=== PATIENT | female | born 1965 | race Caucasian/White ===

== ENCOUNTER → 2016-06-14 | Outpatient (CLI) | payer OTHER ==
[~2016-06-14] MED LIST: ACET500C OR; BACL10TA2 PO; CLARITAN D OR; CLARITIN D PO; FIORICET OR; FLECTOR PATCH; IBUP200C PO; LIDO2.5C17 EXT; MEDROXYPROGESTERONE PO; NEUR300C OR; RANI300T OR; SENO8.6T9 PO; SULI150T OR; TRAM50TA2 OR; VALI5TAB PO
--- NOTE | 2016-06-20 23:44 | ECWPNPC ---
PATIENT NAME: GAUTAM CHAVES : 1965 GENDER: FEMALE VISIT DATE: 06/14/2016 DISCHARGE DATE: 06/14/16 1152 VISIT LOCKED DATE TIME: PHYSICIAN: MAYCOL CHENG RESOURCE: MAYCOL CHENG REASON FOR APPOINTMENT 1. W/C NECK AND RIGHT SHOULDER HISTORY OF PRESENT ILLNESS HISTORY OF PRESENT ILLNESS: PAIN THE PATIENT DESCRIBES THE PAIN... 51 YEAR OLD FEMALE PATIENT WITH HISTORY OF CHRONIC NECK AND RIGHT SHOULDER PAIN. PATIENT DESCRIBES THE PAIN ACHING, BURNING, SHARP, STABBING, TENDER, SORE, AND HAVING IT ALL THE TIME WITH A PAIN SCORE OF 8/10. 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 PATIENT STATES THAT SHE WAS PICKING UP A 80 POUND BIN OF PASTA WHEN SHE INJURED HER NECK AND RIGHT SHOULDER. PATIENT STATES THAT HER PAIN LEVEL INCREASES WHEN SHE SITS FOR A LONG PERIOD OF TIME. PATIENT REPORTS THAT APPLYING VOLTAREN GEL DID NOT PROVIDER THE ADEQUATE PAIN RELIEF AND THAT SKELAXIN PATCHES PROVIDED TEMPORARY PAIN RELIEF. PATIENT REPORTS THAT TAKING GABAPENTIN, TRAMADOL, AND BACLOFEN MAKES THE PAIN MANAGEABLE. PATIENT INDICATES THAT SHE HAS HAD PHYSICAL THERAPY IN THE PAST AND THAT ONLY MADE THE PAIN WORST. A WARM COMPRESS DOES PROVIDE TEMPORARY RELIEF, WHILE A COLD COMPRESS DOES NOTHING FOR HER PAIN. PATIENT DENIES UNEXPLAINABLE WEIGHT LOSS, FEVER, CHILLS, NEW CHANGES ON HER URINARY OR BOWEL CONTROL. FALL RISK SCREENING: SCREENING :NO FALLS IN THE PAST YEAR CURRENT MEDICATIONS TAKING ACETAMINOPHEN 500 MG TABLET 1 TABLET NEEDED ORALLY EVERY 6 HRS TAKING CLARITIN-D 24 HOUR 10-240 MG/24HR TABLET EXTENDED RELEASE 24 HOUR 1 TABLET NEEDED ORALLY ONCE A DAY TAKING SENOKOT S 8.6-50 MG TABLET 1 TABLET IN THE EVENING NEEDED ORALLY ONCE A DAY TAKING BACLOFEN 10 MG TABLET 1 TABLET WITH FOOD OR MILK ORALLY THREE TIMES A DAY TAKING GABAPENTIN 100 MG CAPSULE 1 CAP ORALLY TID TAKING TRAMADOL HCL 50 MG TABLET 1 TABLET ORALLY EVERY 8-12 HRS PRN PAIN MDD=2 NOT-TAKING IBUPROFEN 200 MG TABLET 1 TABLET NEEDED ORALLY EVERY 6 HRS MEDICATION LIST REVIEWED AND RECONCILED WITH THE PATIENT PAST MEDICAL HISTORY NO MEDICAL HISTORY. ALLERGIES PENICILLIN (FOR ALLERGIES USE ONLY) SULFA (FOR ALLERGY USE ONLY) CYCLOBENZAPRINE HCL GABAPENTIN: SIDE EFFECTS SURGICAL HISTORY RIGHT SHOULDER SCOPE 2007 UTERINE ABLATION 2012 TONSILLECTOMY FAMILY HISTORY NO FAMILY HISTORY DOCUMENTED. SOCIAL HISTORY GENERAL: TOBACCO USE ARE YOU A:NONSMOKER LEARNING BARRIERS / SPECIAL NEEDS ORIENTED TO PLAN OF CARE: PATIENT, PAIN MANAGEMENT PATIENT, ORIENTED TO PLAN OF CARE: PATIENT, PAIN MANAGEMENT PATIENT. NEW PATIENT PAIN DIARY TODAY'S VISITNOTES FROM 0-10, WHAT LEVEL IS YOUR PAIN TODAY?0 PAIN CLINIC PFS, CLERGY, PUBLIC HEALTH REFERRALS PFS REFERRAL NEEDED?NO CLERGY REFERRAL NEEDED?NO PUBLIC HEALTH REFERRAL NEEDED?NO WAS THE PROVIDER NOTIFIED OF ANY PERTINENT INFO?NO PFS REFERRAL NEEDED?NO CLERGY REFERRAL NEEDED?NO PUBLIC HEALTH REFERRAL NEEDED?NO WAS THE PROVIDER NOTIFIED OF ANY PERTINENT INFO?NO HOSPITALIZATION/MAJOR DIAGNOSTIC PROCEDURE NO HOSPITALIZATION HISTORY. REVIEW OF SYSTEMS CONSTITUTIONAL: ANY CHANGE IN YOUR MEDICAL CONDITION? NO . CHILLS NO . FEVER NO . INFECTION: DO YOU HAVE NEW INFECTIONS? NO . DO YOU HAVE HISTORY OF MRSA? NO . MUSCULOSKELETAL: ANY NEW PATTERNS OF PAIN OR NUMBNESS? YES RADIATING DOWN TO ELBOW WHICH IS N EW . GASTROENTEROLOGY: ANY NEW CHANGE IN BOWEL CONTROL? NO . GENITOURINARY: ANY NEW CHANGE IN BLADDER CONTROL? NO . IS THERE A CHANCE YOU COULD BE ? NO . HEMATOLOGY/LYMPH: DO YOU TAKE ANY BLOOD THINNERS? (FOR EXAMPLE- COUMADIN, PLAVIX, AGGRENOX, PLATEL, PRADAXA, OR XARELTO) NO . WHEN WAS YOUR LAST DOSE? DATE: TIME: . NEUROLOGY: HAVE YOU FALLEN IN THE PAST 6 MONTHS? NO . ANY NEW EXTREMITY NUMBNESS OR WEAKNESS? NO . CARDIOLOGY: DO YOU HAVE A PACEMAKER OR DEFIBRILLATOR? NO . RESPIRATORY: HAVE YOU BEEN SICK IN THE PAST WEEK? NO . FEVER NO . FLU LIKE SYMPTOMS? NO . COUGH NO . INTEGUMENTARY: DO YOU HAVE ANY RASHES OR OPEN SORES? NO . ALLERGIC/IMMUNO: ARE YOU ALLERGIC TO SHELLFISH OR IV DYE? NO . ANY NEW ALLERGIES? NO . PSYCHIATRIC: DO YOU HAVE THOUGHTS OF HURTING YOURSELF OR SOMEONE ELSE? NO . ARE YOU ABUSED, NEGLECTED, OR IN AN UNSAFE ENVIRONMENT? NO . ENDOCRINOLOGY: ARE YOU DIABETIC? NO . OTHER: DO YOU NEED ANY PRESCRIPTIONS? YES TRAMDOL . IF YES, PLEASE LIST: ____ . ANY NEW PROBLEMS WITH YOUR MEDICATIONS? NO . WHEN DID YOU LAST EAT? ____ . WHEN DID YOU LAST DRINK? ____ . WHAT DID YOU LAST DRINK? ____ . NAME OF PERSON DRIVING YOU HOME? ____ . DO YOU HAVE ANY OTHER QUESTIONS OR CONCERNS NO . REVIEWED BY: PROVIDER: MAYCOL CHENG MD . VITAL SIGNS WT 190 LBS, HT 69 IN, BMI 28.06 INDEX, BP 127/65 MM HG, HR 74 /MIN, RR 16 /MIN, TEMP 96.0 F, OXYGEN SAT % 98, SAFE IN ENV? (Y/N) Y, NA INITIALS TL 1023, REVIEWED BY: KG. EXAMINATION : PATIENT IS ALERT O X 3 AND COOPERATIVE. PATIENT'S RIGHT SHOULDER WHILE AT REST IS HIGHER THAN THE LEFT SHOULDER. PATIENT CANNOT ABDUCT THE RIGHT ARM ONLY THE LEFT ARM. THERE IS TENDERNESS IN THE RIGHT CERVICAL PARASPINAL MUSCLE GROUP AND THE RIGHT SHOULDER AREA. THERE IS HYPERPATHIA IN THE RIGHT UPPER ARM AREA AND THE RIGHT SHOULDER AREA. ASSESSMENTS CERVICALGIA - M54.2 (PRIMARY) MYALGIA - M79.1 NEUROPATHY RIGHT UPPER EXTREMITY. TREATMENT OTHERS REFILL GABAPENTIN CAPSULE, 100 MG, 1 CAP, ORALLY, TID, 30 DAY(S), 90 CAPSULE, REFILLS 3 REFILL TRAMADOL HCL TABLET, 50 MG, 1 TABLET, ORALLY CODE D CHRONIC PAIN, EVERY 8-12 HRS PRN PAIN MDD=2, 90 DAYS, 180, REFILLS 0 REFILL BACLOFEN TABLET, 10 MG, 1 TABLET WITH FOOD OR MILK, ORALLY, THREE TIMES A DAY NEEDED FOR SPASMS AND PAIN MDD3, 30 DAYS, 90, REFILLS 3 NOTES: WE DISCUSSED SEVERAL ISSUES WITH MS. CHAVES PAIN MANAGEMENT CASE. PATIENT WILL REFILL A REFILL OF BACLOFEN, GABAPENTIN, AND TRAMADOL, THESE MEDICATIONS INCREASES THE PATIENT'S MOBILITY AND FUNCTIONALITY. PATIENT BROUGHT HER MEDICATION BOTTLES IN TODAY. I STRESSED THE IMPORTANCE OF COMING IN TO EVERY VISIT WITH THE PATIENT I DO NOT DO REFILLS OVER THE PHONE. DUE TO THE ATTIRE OF THE PATIENT DO I WILL NOT BE ABLE TO DO A TEMPERATURE TEST TODAY. INFORMED THE PATIENT ON THE NEXT VISIT TO WEAR SOMETHING THAT WOULD ALLOW US TO DO A TEMPERATURE TEST ON THE UPPER RIGHT ARM AND RIGHT SHOULDER AREA. I DISCUSSED WITH THE PATIENT THAT SHE IS A GOOD CANDIDATE FOR TPI AND A DCS, PATIENT STATES AT THIS TIME SHE WOULD LIKE TO PUT THOSE TYPE OF INTERVENTIONS ON HOLD. PATIENT TO FOLLOW UP WITH ME IN 2 MONTHS. , INSTRUCTIONS WERE GIVEN, QUESTIONS WERE ANSWERED, PATIENT REPORTS UNDERSTANDING AND AGREES WITH THE PLAN. I, ARLEEN OWUSU, DOCUMENTED THE ABOVE INFORMATION ACTING A SCRIBE FOR DR. CHENG. I HAVE REVIEWED THE ABOVE DOCUMENT, WRITTEN BY ARLEEN OWUSU SCRIBE AND I VERIFY THAT IT IS ACCURATE. PROCEDURES PN WORKMANS' COMP OPINION IN YOUR OPINION, WAS THE INCIDENT THAT THE PATIENT DESCRIBED THE COMPETENT MEDICAL CAUSE OF THIS INJURY/ILLNESS? YES ARE THE PATIENT'S COMPLAINTS CONSISTENT WITH HIS/HER HISTORY OF THE INJURY/ILLNESS? YES IS THE PATIENT'S HISTORY OF THE INJURY/ILLNESS CONSISTENT WITH YOUR OBJECTIVE FINDING? YES WHAT IS THE PERCENTAGE OF TEMPORARY IMPAIRMENT? TOTAL = 100% IS THE PATIENT WORKING? NO DOCTOR ON SITE: MAYCOL FRANCISCO MD PROCEDURE CODES FA211 ESTABILISHED PATIENT [facility] FACILITY CHARGE [id number] PATIENT REFUSED TO PARTICIPATE [id number] DOC MEDS VERIFIED W/PT OR RE FOLLOW UP 2 MONTHS ELECTRONICALLY SIGNED BY MAYCOL CHENG MD ON 06/20/2016 AT 09:35 PM EST DISCLAIMER : THIS IS A VISIT SUMMARY EXTRACTED FROM THE [employer] CHART. IT IS NOT A COPY OF THE [employer] PROGRESS NOTE. TESS
== END ==
LOC: M PAIN 10:40
PROVIDERS: ATTEND Anesthesiology
DX: Z09 Encounter for follow-up examination after completed treatment for conditions other than malignant neoplasm (principal); G89.29 Other chronic pain; M54.2 Cervicalgia; M79.1 Myalgia; Z88.0 Allergy status to penicillin; Z88.2 Allergy status to sulfonamides; Z88.8 Allergy status to other drugs, medicaments and biological substances; Z79.1 Long term (current) use of non-steroidal anti-inflammatories (NSAID); Z79.891 Long term (current) use of opiate analgesic; Z79.899 Other long term (current) drug therapy

== ENCOUNTER → 2016-08-17 | Outpatient (CLI) | payer OTHER ==
--- NOTE | 2016-08-20 23:55 | ECWPNPC ---
PATIENT NAME: GAUTAM CHAEVS : 1965 GENDER: FEMALE VISIT DATE: 08/17/2016 DISCHARGE DATE: 08/17/16 1450 VISIT LOCKED DATE TIME: PHYSICIAN: MAYCOL CHENG RESOURCE: MAYCOL CHENG REASON FOR APPOINTMENT 1. W/C RIGHT SHOULDER AND NECK PAIN HISTORY OF PRESENT ILLNESS HISTORY OF PRESENT ILLNESS: PAIN THE PATIENT DESCRIBES THE PAIN... 51 YEAR OLD FEMALE PATIENT WITH HISTORY OF CHRONIC RIGHT SHOULDER AND NECK PAIN. PATIENT DESCRIBES THE PAIN ACHING, BURNING, SHARP, TENDER, SORE, AND HAVING IT ALL THE TIME WITH A PAIN SCORE OF 8/10 AT TODAY'S VISIT. 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 MRS. CHAVES HAS HAD SURGERY SINCE THE INCIDENT AND HAS TRIED PHYSICAL THERAPY NUMEROUS TIMES BUT STATES THAT IT DOES NOT AID IN PAIN RELIEF. CURRENTLY THE PATIENT IS USING BACLOFEN, GABAPENTIN, AND TRAMADOL WHICH SHE STATES KEEPS HER FUNCTIONAL AND MOBILE. PATIENT STATES THAT SITTING INCREASES THE PAIN IN HER NECK AND RIGHT SHOULDER. WARM COMPRESSES AIDS IN PAIN RELIEF FOR A BRIEF PERIOD OF TIME AND COLD COMPRESSES DO NOT AID IN RELIEF. PATIENT DENIES UNEXPLAINABLE WEIGHT LOSS, FEVER, CHILLS, NEW CHANGES ON HER URINARY OR BOWEL CONTROL. FALL RISK SCREENING: SCREENING :NO FALLS IN THE PAST YEAR CURRENT MEDICATIONS TAKING GABAPENTIN 100 MG CAPSULE 1 CAP ORALLY TID TAKING TRAMADOL HCL 50 MG TABLET 1 TABLET ORALLY CODE D CHRONIC PAIN EVERY 8-12 HRS PRN PAIN MDD=2 TAKING ACETAMINOPHEN 500 MG TABLET 1 TABLET NEEDED ORALLY EVERY 6 HRS TAKING CLARITIN-D 24 HOUR 10-240 MG/24HR TABLET EXTENDED RELEASE 24 HOUR 1 TABLET NEEDED ORALLY ONCE A DAY TAKING SENOKOT S 8.6-50 MG TABLET 1 TABLET IN THE EVENING NEEDED ORALLY ONCE A DAY TAKING BACLOFEN 10 MG TABLET 1 TABLET WITH FOOD OR MILK ORALLY THREE TIMES A DAY NEEDED FOR SPASMS AND PAIN MDD3 NOT-TAKING IBUPROFEN 200 MG TABLET 1 TABLET NEEDED ORALLY EVERY 6 HRS MEDICATION LIST REVIEWED AND RECONCILED WITH THE PATIENT PAST MEDICAL HISTORY NO MEDICAL HISTORY. ALLERGIES PENICILLIN (FOR ALLERGIES USE ONLY) SULFA (FOR ALLERGY USE ONLY) CYCLOBENZAPRINE HCL GABAPENTIN: SIDE EFFECTS SURGICAL HISTORY RIGHT SHOULDER SCOPE 2007 UTERINE ABLATION 2012 TONSILLECTOMY FAMILY HISTORY NO FAMILY HISTORY DOCUMENTED. SOCIAL HISTORY GENERAL: TOBACCO USE ARE YOU A:NONSMOKER LEARNING BARRIERS / SPECIAL NEEDS ORIENTED TO PLAN OF CARE: PATIENT, PAIN MANAGEMENT PATIENT, ORIENTED TO PLAN OF CARE: PATIENT, PAIN MANAGEMENT PATIENT. NEW PATIENT PAIN DIARY TODAY'S VISITNOTES FROM 0-10, WHAT LEVEL IS YOUR PAIN TODAY?0 PAIN CLINIC PFS, CLERGY, PUBLIC HEALTH REFERRALS PFS REFERRAL NEEDED?NO CLERGY REFERRAL NEEDED?NO PUBLIC HEALTH REFERRAL NEEDED?NO WAS THE PROVIDER NOTIFIED OF ANY PERTINENT INFO?NO PFS REFERRAL NEEDED?NO CLERGY REFERRAL NEEDED?NO PUBLIC HEALTH REFERRAL NEEDED?NO WAS THE PROVIDER NOTIFIED OF ANY PERTINENT INFO?NO HOSPITALIZATION/MAJOR DIAGNOSTIC PROCEDURE NO HOSPITALIZATION HISTORY. REVIEW OF SYSTEMS CONSTITUTIONAL: ANY CHANGE IN YOUR MEDICAL CONDITION? NO . CHILLS NO . FEVER NO . INFECTION: DO YOU HAVE NEW INFECTIONS? NO . DO YOU HAVE HISTORY OF MRSA? NO . MUSCULOSKELETAL: ANY NEW PATTERNS OF PAIN OR NUMBNESS? NO . GASTROENTEROLOGY: ANY NEW CHANGE IN BOWEL CONTROL? NO . GENITOURINARY: ANY NEW CHANGE IN BLADDER CONTROL? NO . IS THERE A CHANCE YOU COULD BE ? NO . HEMATOLOGY/LYMPH: DO YOU TAKE ANY BLOOD THINNERS? (FOR EXAMPLE- COUMADIN, PLAVIX, AGGRENOX, PLATEL, PRADAXA, OR XARELTO) NO . WHEN WAS YOUR LAST DOSE? DATE: TIME: . NEUROLOGY: HAVE YOU FALLEN IN THE PAST 6 MONTHS? NO . ANY NEW EXTREMITY NUMBNESS OR WEAKNESS? NO . CARDIOLOGY: DO YOU HAVE A PACEMAKER OR DEFIBRILLATOR? NO . RESPIRATORY: HAVE YOU BEEN SICK IN THE PAST WEEK? NO . FEVER NO . FLU LIKE SYMPTOMS? NO . COUGH NO . INTEGUMENTARY: DO YOU HAVE ANY RASHES OR OPEN SORES? NO . ALLERGIC/IMMUNO: ARE YOU ALLERGIC TO SHELLFISH OR IV DYE? NO . ANY NEW ALLERGIES? NO . PSYCHIATRIC: DO YOU HAVE THOUGHTS OF HURTING YOURSELF OR SOMEONE ELSE? NO . ARE YOU ABUSED, NEGLECTED, OR IN AN UNSAFE ENVIRONMENT? NO . ENDOCRINOLOGY: ARE YOU DIABETIC? NO . OTHER: DO YOU NEED ANY PRESCRIPTIONS? NO . IF YES, PLEASE LIST: ____ . ANY NEW PROBLEMS WITH YOUR MEDICATIONS? NO . WHEN DID YOU LAST EAT? ____ . WHEN DID YOU LAST DRINK? ____ . WHAT DID YOU LAST DRINK? ____ . NAME OF PERSON DRIVING YOU HOME? ____ . DO YOU HAVE ANY OTHER QUESTIONS OR CONCERNS NO . REVIEWED BY: PROVIDER: MAYCOL CHENG MD . VITAL SIGNS WT 192.2 LBS, HT 69 IN, BMI 28.38 INDEX, BP 113/67 MM HG, HR 59 /MIN, RR 16 /MIN, TEMP 98.1 F, OXYGEN SAT % 98%, NA INITIALS SC 13:34, REVIEWED BY: CM. EXAMINATION : PATIENT IS ALERT O X 3 AND COOPERATIVE. DIFFICULTY REMOVING RIGHT ARM FROM LONG SLEEVED SHIRT. PATIENT'S RIGHT SHOULDER WHILE AT REST IS HIGHER THAN THE LEFT SHOULDER. PATIENT CANNOT ABDUCT THE RIGHT ARM ONLY THE LEFT ARM. RIGHT HAND TECHNOLOGY RISK INTERN AND ARM IS WEAKER THEN THE LEFT. THERE IS SEVERE TENDERNESS IN THE RIGHT SHOULDER AREA. ALLODYNIA DISTAL TO THE RIGHT ELBOW. PATIENT REQUESTED TO NOT BE TOUCHED AT THE BACK OF THE RIGHT SHOULDER AND ABOVE THE ELBOW DUE TO SEVERE PAIN. BANDS OF TISSUE, RESTRICTION OF MOVEMENT, AND PRESENCE OF TRIGGER POINTS IN THE RIGHT SHOULDER AND NECK AREA. ASSESSMENTS MYALGIA - M79.1 (PRIMARY) CERVICALGIA - M54.2 RIGHT UPPER EXTREMITY NEUROPATHY. TREATMENT MYALGIA NOTES: WE DISCUSSED SEVERAL ISSUES WITH MRS. CHAVES'S PAIN MANAGEMENT CASE. AT THIS TIME THE PATIENT WILL CONTINUE WITH THE SAME MEDICATION REGIME BEFORE. PATIENT IS USING GABAPENTIN FOR THE NEUROPATHIC PAIN, TRAMADOL FOR THE SOMATIC PAIN WELL TYLENOL, AND BACLOFEN FOR THE MUSCLE SPASMS IN THE NECK AND SHOULDER AREA. PATIENT WILL SLOWLY DECREASE THE USE OF BACLOFEN TO CLEAN HER SYSTEM AND TO SEE IF IT IS AIDING IN RELIEF AT THIS TIME. PATIENT WILL PERFORM A URINE TOXICOLOGY TEST TODAY WELL A TEMPERATURE TEST. I WILL ALSO GET THE REPORTS FROM THE RIGHT SHOULDER MRI TO BETTER ASSES THE PATIENT'S PAIN. WE DISCUSSED MOVING FORWARD WITH INJECTIONS BUT AT THIS TIME THE PATIENT WOULD NOT LIKE TO MOVE FORWARD WITH INTERVENTIONS. WE BRIEFLY DISCUSSED A DCS FOR THE PATIENT AND AT THIS TIME THE PATIENT DOES NOT WANT TO TRY THE NEUROSTIMULATOR. PATIENT WILL RETURN TO THE CLINIC IN 10 WEEKS TO DISCUSS MEDICATION MANAGEMENT AND POSSIBLE INTERVENTIONS. INSTRUCTIONS WERE GIVEN, QUESTIONS WERE ANSWERED, PATIENT REPORTS UNDERSTANDING AND AGREES WITH THE PLAN. I, VICTORIANO LUCAS, DOCUMENTED THE ABOVE INFORMATION ACTING A SCRIBE FOR DR. CHENG. I HAVE REVIEWED THE ABOVE DOCUMENT, WRITTEN BY VICTORIANO SOLORIO AND I VERIFY THAT IT IS ACCURATE. OTHERS REFILL GABAPENTIN CAPSULE, 100 MG, 1 CAP, ORALLY, TID, 30 DAY(S), 90 CAPSULE, REFILLS 3 REFILL TRAMADOL HCL TABLET, 50 MG, 1 TABLET, ORALLY CODE D CHRONIC PAIN, EVERY 8-12 HRS PRN PAIN MDD=2, 90 DAYS, 180, REFILLS 0 REFILL ACETAMINOPHEN TABLET, 500 MG, 1 TO 2 TABLET NEEDED, ORALLY, EVERY 6 HRS PRN FOR PAIN MDD6, 30 DAY(S), 100, REFILLS 3 REFILL BACLOFEN TABLET, 10 MG, 1 TABLET WITH FOOD OR MILK, ORALLY, THREE TIMES A DAY NEEDED FOR SPASMS AND PAIN MDD3, 30 DAYS, 70, REFILLS 3 PROCEDURES PN WORKMANS' COMP OPINION IN YOUR OPINION, WAS THE INCIDENT THAT THE PATIENT DESCRIBED THE COMPETENT MEDICAL CAUSE OF THIS INJURY/ILLNESS? YES ARE THE PATIENT'S COMPLAINTS CONSISTENT WITH HIS/HER HISTORY OF THE INJURY/ILLNESS? YES IS THE PATIENT'S HISTORY OF THE INJURY/ILLNESS CONSISTENT WITH YOUR OBJECTIVE FINDING? YES WHAT IS THE PERCENTAGE OF TEMPORARY IMPAIRMENT? TOTAL = 100% IS THE PATIENT WORKING? NO DOCTOR ON SITE: MAYCOL FRANCISCO MD PROCEDURE CODES FA211 ESTABILISHED PATIENT [facility] FACILITY CHARGE G8427 DOC MEDS VERIFIED W/PT OR RE G8730 PAIN ASSESS POS TOOL F/U PLAN DOC DISPOSITION & COMMUNICATION FOLLOW UP 10 WEEKS ELECTRONICALLY SIGNED BY MAYCOL CHENG MD ON 08/20/2016 AT 06:23 PM EDT DISCLAIMER : THIS IS A VISIT SUMMARY EXTRACTED FROM THE [employer] CHART. IT IS NOT A COPY OF THE [employer] PROGRESS NOTE. TESS
== END ==
LOC: M PAIN 13:40
PROVIDERS: ATTEND Anesthesiology
DX: Z09 Encounter for follow-up examination after completed treatment for conditions other than malignant neoplasm (principal); G89.29 Other chronic pain; M79.1 Myalgia; M54.2 Cervicalgia; Z88.0 Allergy status to penicillin; Z88.2 Allergy status to sulfonamides; Z88.8 Allergy status to other drugs, medicaments and biological substances; Z79.891 Long term (current) use of opiate analgesic; Z79.1 Long term (current) use of non-steroidal anti-inflammatories (NSAID); Z79.899 Other long term (current) drug therapy

== ENCOUNTER → 2016-10-26 | Outpatient (CLI) | payer OTHER ==
--- NOTE | 2016-11-07 01:34 | ECWPNPC ---
PATIENT NAME: GAUTAM CHAVES : 1965 GENDER: FEMALE VISIT DATE: 10/26/2016 DISCHARGE DATE: 10/26/16 1057 VISIT LOCKED DATE TIME: PHYSICIAN: MAYCOL CHENG RESOURCE: MAYCOL CHENG REASON FOR APPOINTMENT 1. W/C ARM/NECK PAIN HISTORY OF PRESENT ILLNESS HISTORY OF PRESENT ILLNESS: PAIN THE PATIENT DESCRIBES THE PAIN... 51 YEAR OLD FEMALE PATIENT WITH HISTORY OF CHRONIC RIGHT SHOULDER AND NECK PAIN. PATIENT DESCRIBES THE PAIN ACHING, BURNING, SHARP, TENDER, SORE, TINGLING, AND HAVING IT ALL THE TIME WITH A PAIN SCORE OF 8/10 ON TODAY'S VISIT. 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 MRS. CHAVES HAS HAD SURGERY SINCE THE INCIDENT AND HAS TRIED PHYSICAL THERAPY NUMEROUS TIMES BUT STATES THAT IT DOES NOT AID IN PAIN RELIEF. CURRENTLY THE PATIENT IS USING BACLOFEN WHICH HELPS SEVERE SPASTICITY DURING THE DAY TO ALLOW HER TO FUNCTION TO COMPLETE DAILY ACTIVITIES AND CHORES AND AT NIGHT TO HELP HER SLEEP, PATIENT REPORTS THAT GABAPENTIN IS HELPING WITH THE PAIN, BUT SHE CAN NOT TAKE MORE THAN 100 MG DUE TO MEMORY LOSS PROBLEMS. PATIENT REPORTS THAT WHEN SHE STOPPED/REDUCED BACLOFEN THE MUSCLE SPASTICITY WAS SO BAD SHE WAS NOT ABLE TO FUNCTION AT ALL. PATIENT REPORTS THAT SHE IS UNSURE HOW TRAMADOL IS HELPING WITH HER PAIN AT THIS TIME. PATIENT DENIES UNEXPLAINABLE WEIGHT LOSS, FEVER, CHILLS, NEW CHANGES ON HER URINARY OR BOWEL CONTROL. FALL RISK SCREENING: SCREENING :NO FALLS IN THE PAST YEAR CURRENT MEDICATIONS TAKING ACETAMINOPHEN 500 MG TABLET 1 TO 2 TABLET NEEDED ORALLY EVERY 6 HRS PRN FOR PAIN MDD6 TAKING CLARITIN-D 24 HOUR 10-240 MG/24HR TABLET EXTENDED RELEASE 24 HOUR 1 TABLET NEEDED ORALLY ONCE A DAY TAKING SENOKOT S 8.6-50 MG TABLET 1 TABLET IN THE EVENING NEEDED ORALLY ONCE A DAY TAKING TRAMADOL HCL 50 MG TABLET 1 TABLET ORALLY FOR PAIN EVERY 8-12 HRS PRN PAIN MDD=2 TAKING BACLOFEN 10 MG TABLET 1 TABLET WITH FOOD OR MILK ORALLY THREE TIMES A DAY NEEDED FOR SPASMS AND PAIN MDD3 TAKING GABAPENTIN 100 MG CAPSULE 1 CAP ORALLY TID NOT-TAKING IBUPROFEN 200 MG TABLET 1 TABLET NEEDED ORALLY EVERY 6 HRS MEDICATION LIST REVIEWED AND RECONCILED WITH THE PATIENT PAST MEDICAL HISTORY COMPLEX REGIONAL PAIN SYNDROME RIGHT ARM ESOPHAGEAL REFLUX DIAPHRAGMATIC HERNIA MYOFASCIAL PAIN SYNDROME ALLERGIES PENICILLIN (FOR ALLERGIES USE ONLY): UNKNOWN REACTION SULFA (FOR ALLERGY USE ONLY): UNKNOWN REACTION CYCLOBENZAPRINE HCL: ABDOMINAL PAIN: SIDE EFFECTS GABAPENTIN: HIGH DOSE CONFUSION/MEMORY LOSS: SIDE EFFECTS SURGICAL HISTORY RIGHT SHOULDER SCOPE 2007 UTERINE ABLATION 2012 TONSILLECTOMY FAMILY HISTORY NO FAMILY HISTORY DOCUMENTED. 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 NEW PATIENT PAIN DIARY TODAY'S VISITNOTES FROM 0-10, WHAT LEVEL IS YOUR PAIN TODAY?0 PAIN CLINIC PFS, CLERGY, PUBLIC HEALTH REFERRALS PFS REFERRAL NEEDED?NO CLERGY REFERRAL NEEDED?NO PUBLIC HEALTH REFERRAL NEEDED?NO WAS THE PROVIDER NOTIFIED OF ANY PERTINENT INFO?NO PFS REFERRAL NEEDED?NO CLERGY REFERRAL NEEDED?NO PUBLIC HEALTH REFERRAL NEEDED?NO WAS THE PROVIDER NOTIFIED OF ANY PERTINENT INFO?NO ADVANCE DIRECTIVES HEALTH CARE PROXY?NO WOULD YOU LIKE MORE INFORMATION?NO DO YOU HAVE A DNR?NO WOULD YOU LIKE MORE INFORMATION?NO LIVING WILL?NO WOULD YOU LIKE MORE INFORMATION?NO POWER OF GRADE SCHOOL TEACHER?NO WOULD YOU LIKE MORE INFORMATION?NO HOSPITALIZATION/MAJOR DIAGNOSTIC PROCEDURE TONSILLECTOMY REVIEW OF SYSTEMS CONSTITUTIONAL: ANY CHANGE IN YOUR MEDICAL CONDITION? NO . CHILLS NO . FEVER NO . INFECTION: DO YOU HAVE NEW INFECTIONS? NO . DO YOU HAVE HISTORY OF MRSA? NO . MUSCULOSKELETAL: ANY NEW PATTERNS OF PAIN OR NUMBNESS? NO . GASTROENTEROLOGY: ANY NEW CHANGE IN BOWEL CONTROL? NO . GENITOURINARY: ANY NEW CHANGE IN BLADDER CONTROL? NO . IS THERE A CHANCE YOU COULD BE ? NO . HEMATOLOGY/LYMPH: DO YOU TAKE ANY BLOOD THINNERS? (FOR EXAMPLE- COUMADIN, PLAVIX, AGGRENOX, PLATEL, PRADAXA, OR XARELTO) NO . WHEN WAS YOUR LAST DOSE? DATE: TIME: . NEUROLOGY: HAVE YOU FALLEN IN THE PAST 6 MONTHS? NO . ANY NEW EXTREMITY NUMBNESS OR WEAKNESS? NO . CARDIOLOGY: DO YOU HAVE A PACEMAKER OR DEFIBRILLATOR? NO . RESPIRATORY: HAVE YOU BEEN SICK IN THE PAST WEEK? NO . FEVER NO . FLU LIKE SYMPTOMS? NO . COUGH NO . INTEGUMENTARY: DO YOU HAVE ANY RASHES OR OPEN SORES? NO . ALLERGIC/IMMUNO: ARE YOU ALLERGIC TO SHELLFISH OR IV DYE? NO . ANY NEW ALLERGIES? NO . PSYCHIATRIC: DO YOU HAVE THOUGHTS OF HURTING YOURSELF OR SOMEONE ELSE? NO . ARE YOU ABUSED, NEGLECTED, OR IN AN UNSAFE ENVIRONMENT? NO . ENDOCRINOLOGY: ARE YOU DIABETIC? NO . OTHER: DO YOU NEED ANY PRESCRIPTIONS? NO . IF YES, PLEASE LIST: ____ . ANY NEW PROBLEMS WITH YOUR MEDICATIONS? NO . WHEN DID YOU LAST EAT? ____ . WHEN DID YOU LAST DRINK? ____ . WHAT DID YOU LAST DRINK? ____ . NAME OF PERSON DRIVING YOU HOME? ____ . DO YOU HAVE ANY OTHER QUESTIONS OR CONCERNS NO . REVIEWED BY: PROVIDER: MAYCOL CHENG MD . VITAL SIGNS WT 198.2 LBS, HT 69 IN, BMI 29.27 INDEX, BP 114/65 MM HG, HR 60 /MIN, RR 16 /MIN, TEMP 97.0 F, OXYGEN SAT % 99%, NA INITIALS TL 0925, REVIEWED BY: JAMES. EXAMINATION : PATIENT IS ALERT O X 3 AND COOPERATIVE. PATIENT HAS DIFFICULTIES REMOVING HER SHIRT FOR THE EXAMINATION. PATIENT'S RIGHT SHOULDER SITS AT A LOWER RESTING POSITION COMPARED TO THE LEFT SHOULDER. PATIENT IS ONLY ABLE TO ABDUCT HER RIGHT EXTREMITY TO 30 DEGREES, LEFT EXTREMITY ABDUCTS OKAY. THERE IS TENDERNESS IN THE RIGHT SHOULDER WITH HYPERPATHIA. THERE IS ALLODYNIA IN THE RIGHT UPPER ARM. RIGHT HAND NEWSPAPER VENDOR IS WEAKER COMPARED TO THE LEFT. RIGHT ARM IS WEAKER AT FLEXION AND EXTENSION COMPARED TO THE LEFT. ASSESSMENTS MYALGIA - M79.1 (PRIMARY) RIGHT UPPER EXTREMITY NEUROPATHY. TREATMENT MYALGIA NOTES: WE DISCUSSED SEVERAL ISSUES WITH MRS. CHAVES'S PAIN MANAGEMENT CASE. AT THIS TIME THE PATIENT WILL CONTINUE WITH THE SAME MEDICATION REGIME BEFORE. PATIENT IS USING GABAPENTIN FOR THE NEUROPATHIC PAIN AND BACLOFEN NEEDED FOR THE MUSCLE SPASMS IN THE NECK AND SHOULDER AREA. AT THIS TIME I WILL HAVE THE PATIENT REDUCE HER TRAMADOL INTAKE TO DETERMINE HOW THIS MEDICATION IS AIDING IN HER PAIN RELIEF. I DISCUSSED WITH THE PATIENT IS SHE COULD LOCATE A REPORT OF MRI OF THE RIGHT SHOULDER AND BRING THAT REPORT ON HER NEXT VISIT. I DISCUSSED INTERVENTIONAL INJECTION POSSIBILITIES THAT SHE IS A CANDIDATE FOR AND SPINAL COLUMN STIMULATOR WITH THE PATIENT AND AT THIS TIME THE PATIENT IS NOT INTERESTED. UTOX ORDERED ON 08/17/2016 SHOWS CONSISTENT RESULTS WITH WAS PRESCRIBED FOR THE PATIENT. PATIENT WILL FOLLOW UP WITH ME IN 2 MONTHS. INSTRUCTIONS WERE GIVEN, QUESTIONS WERE ANSWERED, PATIENT REPORTS UNDERSTANDING AND AGREES WITH THE PLAN. I, ARLEEN OWUSU, DOCUMENTED THE ABOVE INFORMATION ACTING A SCRIBE FOR DR. CHENG. I HAVE REVIEWED THE ABOVE DOCUMENT, WRITTEN BY ARLEEN OWUSU SCRIBE AND I VERIFY THAT IT IS ACCURATE. OTHERS REFILL BACLOFEN TABLET, 10 MG, 1 TABLET WITH FOOD OR MILK, ORALLY, THREE TIMES A DAY NEEDED FOR SPASMS AND PAIN MDD3, 30 DAYS, 60, REFILLS 3 REFILL GABAPENTIN CAPSULE, 100 MG, 1 CAP, ORALLY, TID, 30 DAY(S), 90 CAPSULE, REFILLS 3 PROCEDURES PN WORKMANS' COMP OPINION IN YOUR OPINION, WAS THE INCIDENT THAT THE PATIENT DESCRIBED THE COMPETENT MEDICAL CAUSE OF THIS INJURY/ILLNESS? YES ARE THE PATIENT'S COMPLAINTS CONSISTENT WITH HIS/HER HISTORY OF THE INJURY/ILLNESS? YES IS THE PATIENT'S HISTORY OF THE INJURY/ILLNESS CONSISTENT WITH YOUR OBJECTIVE FINDING? YES WHAT IS THE PERCENTAGE OF TEMPORARY IMPAIRMENT? TOTAL = 100% IS THE PATIENT WORKING? NO DOCTOR ON SITE: MAYCOL FRANCISCO MD PROCEDURE CODES FA211 ESTABILISHED PATIENT [facility] FACILITY CHARGE G8730 PAIN ASSESS POS TOOL F/U PLAN DOC G8427 DOC MEDS VERIFIED W/PT OR RE DISPOSITION & COMMUNICATION FOLLOW UP 2 MONTHS ELECTRONICALLY SIGNED BY MAYCOL CHENG MD ON 11/05/2016 AT 07:53 PM EDT DISCLAIMER : THIS IS A VISIT SUMMARY EXTRACTED FROM THE [employer] CHART. IT IS NOT A COPY OF THE [employer] PROGRESS NOTE. MTDD
== END ==
LOC: M PAIN 09:30
PROVIDERS: ATTEND Anesthesiology
DX: G89.29 Other chronic pain (principal); M79.1 Myalgia; M25.011 Hemarthrosis, right shoulder; M54.2 Cervicalgia; K21.9 Gastro-esophageal reflux disease without esophagitis; K44.9 Diaphragmatic hernia without obstruction or gangrene; Z88.0 Allergy status to penicillin; Z88.2 Allergy status to sulfonamides; Z88.8 Allergy status to other drugs, medicaments and biological substances; Z79.891 Long term (current) use of opiate analgesic; Z79.899 Other long term (current) drug therapy

== ENCOUNTER → 2017-01-11 | Outpatient (CLI) | payer OTHER ==
[~2017-01-11] MED LIST changes: -IBUP200C PO; +IBUP200C10 PO
--- NOTE | 2017-01-30 02:11 | ECWPNPC ---
PATIENT NAME: GAUTAM CHAVES : 1965 GENDER: FEMALE VISIT DATE: 01/11/2017 DISCHARGE DATE: 01/11/17 1251 VISIT LOCKED DATE TIME: PHYSICIAN: MAYCOL CHENG RESOURCE: MAYCOL CHENG REASON FOR APPOINTMENT 1. W/C RIGHT SHOULDER HISTORY OF PRESENT ILLNESS HISTORY OF PRESENT ILLNESS: PAIN THE PATIENT DESCRIBES THE PAIN... 51 YEAR OLD FEMALE PATIENT WITH HISTORY OF CHRONIC RIGHT SHOULDER AND NECK PAIN. PATIENT DESCRIBES THE PAIN ACHING, BURNING, SHARP, STABBING, TENDER, SORE, AND HAVING THE PAIN ALL THE TIME. PATIENT HAS A PAIN SCORE OF 8-9/10 AT TODAY'S VISIT. 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 MRS. CHAVES HAS HAD SURGERY SINCE THE INCIDENT AND HAS TRIED PHYSICAL THERAPY A NUMBER OF TIMES BUT STATES THAT IT DOES NOT AID IN PAIN RELIEF. CURRENTLY THE PATIENT IS USING BACLOFEN, AND GABAPENTIN WHICH SHE STATES KEEPS HER FUNCTIONAL AND MOBILE. PATIENT STATES THAT SITTING INCREASES THE PAIN IN HER NECK AND RIGHT SHOULDER. WARM COMPRESSES AIDS IN PAIN RELIEF FOR A BRIEF PERIOD OF TIME AND COLD COMPRESSES DO NOT AID IN RELIEF. PATIENT DENIES UNEXPLAINABLE WEIGHT LOSS, FEVER, CHILLS, NEW CHANGES ON HER URINARY OR BOWEL CONTROL. FALL RISK SCREENING: SCREENING :NO FALLS IN THE PAST YEAR CURRENT MEDICATIONS TAKING BACLOFEN 10 MG TABLET 1 TABLET WITH FOOD OR MILK ORALLY THREE TIMES A DAY NEEDED FOR SPASMS AND PAIN MDD3 TAKING GABAPENTIN 100 MG CAPSULE 1 CAP ORALLY TID TAKING ACETAMINOPHEN 500 MG TABLET 1 TO 2 TABLET NEEDED ORALLY EVERY 6 HRS PRN FOR PAIN MDD6 TAKING CLARITIN-D 24 HOUR 10-240 MG/24HR TABLET EXTENDED RELEASE 24 HOUR 1 TABLET NEEDED ORALLY ONCE A DAY TAKING SENOKOT S 8.6-50 MG TABLET 1 TABLET IN THE EVENING NEEDED ORALLY ONCE A DAY NOT-TAKING TRAMADOL HCL 50 MG TABLET 1 TABLET ORALLY FOR PAIN EVERY 8-12 HRS PRN PAIN MDD=2 NOT-TAKING IBUPROFEN 200 MG TABLET 1 TABLET NEEDED ORALLY EVERY 6 HRS MEDICATION LIST REVIEWED AND RECONCILED WITH THE PATIENT PAST MEDICAL HISTORY COMPLEX REGIONAL PAIN SYNDROME RIGHT ARM ESOPHAGEAL REFLUX DIAPHRAGMATIC HERNIA MYOFASCIAL PAIN SYNDROME ALLERGIES PENICILLIN (FOR ALLERGIES USE ONLY): UNKNOWN REACTION SULFA (FOR ALLERGY USE ONLY): UNKNOWN REACTION CYCLOBENZAPRINE HCL: ABDOMINAL PAIN: SIDE EFFECTS GABAPENTIN: HIGH DOSE CONFUSION/MEMORY LOSS: SIDE EFFECTS REVIEW OF SYSTEMS REVIEWED BY: PROVIDER: MAYCOL CHENG MD . CONSTITUTIONAL: ANY CHANGE IN YOUR MEDICAL CONDITION? YES . CHILLS NO . FEVER NO . INFECTION: DO YOU HAVE NEW INFECTIONS? NO . DO YOU HAVE HISTORY OF MRSA? NO . MUSCULOSKELETAL: ANY NEW PATTERNS OF PAIN OR NUMBNESS? YES, RIGHT NECK AND INTO SHOULDER AND DOWN ARM IS MUCH WORSE IN THE PAST WEEK . GASTROENTEROLOGY: ANY NEW CHANGE IN BOWEL CONTROL? NO . GENITOURINARY: ANY NEW CHANGE IN BLADDER CONTROL? NO . IS THERE A CHANCE YOU COULD BE ? NO . HEMATOLOGY/LYMPH: DO YOU TAKE ANY BLOOD THINNERS? (FOR EXAMPLE- COUMADIN, PLAVIX, AGGRENOX, PLATEL, PRADAXA, OR XARELTO) NO . WHEN WAS YOUR LAST DOSE? DATE: TIME: . NEUROLOGY: HAVE YOU FALLEN IN THE PAST 6 MONTHS? NO . ANY NEW EXTREMITY NUMBNESS OR WEAKNESS? NO . CARDIOLOGY: DO YOU HAVE A PACEMAKER OR DEFIBRILLATOR? NO . RESPIRATORY: HAVE YOU BEEN SICK IN THE PAST WEEK? NO . FEVER NO . FLU LIKE SYMPTOMS? NO . COUGH NO . INTEGUMENTARY: DO YOU HAVE ANY RASHES OR OPEN SORES? NO . ALLERGIC/IMMUNO: ARE YOU ALLERGIC TO SHELLFISH OR IV DYE? NO . ANY NEW ALLERGIES? NO . PSYCHIATRIC: DO YOU HAVE THOUGHTS OF HURTING YOURSELF OR SOMEONE ELSE? NO . ARE YOU ABUSED, NEGLECTED, OR IN AN UNSAFE ENVIRONMENT? NO . ENDOCRINOLOGY: ARE YOU DIABETIC? NO . OTHER: DO YOU NEED ANY PRESCRIPTIONS? NO . IF YES, PLEASE LIST: ____ . ANY NEW PROBLEMS WITH YOUR MEDICATIONS? NO . WHEN DID YOU LAST EAT? ____ . WHEN DID YOU LAST DRINK? ____ . WHAT DID YOU LAST DRINK? ____ . NAME OF PERSON DRIVING YOU HOME? ____ . DO YOU HAVE ANY OTHER QUESTIONS OR CONCERNS NO . VITAL SIGNS WT 191 LBS, HT 69 IN, BMI 28.20 INDEX, BP 107/65 MM HG, HR 55 /MIN, RR 16 /MIN, TEMP 97.2 F, OXYGEN SAT % 99%, NA INITIALS AW 1204. EXAMINATION : PATIENT IS ALERT O X 3 AND COOPERATIVE. THERE IS SEVERE TENDERNESS IN THE RIGHT SHOULDER AREA. THERE IS EXTREME SPASTICITY NEAR THE RIGHT SHOULDER AREA. URINE TOX DONE ON 08/17/2016 SHOWS CONSISTENT RESULTS WITH THE PATIENTS MEDICATION LIST. ASSESSMENTS MYALGIA - M79.1 (PRIMARY) CERVICALGIA - M54.2 TREATMENT MYALGIA CLINICAL NOTES: WE DISCUSSED SEVERAL ISSUES WITH MRS. CHAVES'S PAIN MANAGEMENT CASE. AT THIS TIME THE PATIENT WILL CONTINUE WITH THE SAME MEDICATION REGIME BEFORE. PATIENT IS USING GABAPENTIN FOR THE NEUROPATHIC PAIN, AND BACLOFEN FOR THE MUSCLE SPASMS IN THE NECK AND SHOULDER AREA. WE DISCUSSED MOVING FORWARD WITH INJECTIONS BUT AT THIS TIME THE PATIENT WOULD NOT LIKE TO MOVE FORWARD WITH INTERVENTIONS AND FEELS MORE COMFORTABLE WITH KEEPING UP ON THE MEDICATION MANAGEMENT FOR THE TIME BEING. PATIENT STATED THAT SHE RECEIVED HER MEDICATIONS THROUGH [facility] SO SHE HAS MEDICATION FOR 2 FULL MONTHS; I WILL PRESCRIBE HER MEDICATIONS FOR 1 MONTH SEEING SHE WON'T BE BACK FOR 3 MONTHS. WE BRIEFLY DISCUSSED A DCS FOR THE PATIENT AND AT THIS TIME THE PATIENT DOES NOT WANT TO TRY THE NEUROSTIMULATOR. PATIENT WILL FOLLOW UP WITH A SANDER AND POLISHER IN 3 MONTHS TO DISCUSS MEDICATION MANAGEMENT AND POSSIBLE INTERVENTIONS. INSTRUCTIONS WERE GIVEN, QUESTIONS WERE ANSWERED, PATIENT REPORTS UNDERSTANDING AND AGREES WITH THE PLAN. I, PRABHA SANDHU, DOCUMENTED THE ABOVE INFORMATION ACTING A SCRIBE FOR DR. CHENG. I HAVE REVIEWED THE ABOVE DOCUMENT, WRITTEN BY PRABHA SOLORIO AND I VERIFY THAT IT IS ACCURATE. OTHERS REFILL BACLOFEN TABLET, 10 MG, 1 TABLET WITH FOOD OR MILK, ORALLY, THREE TIMES A DAY NEEDED FOR SPASMS AND PAIN MDD3, 30 DAYS, 60, REFILLS 1 REFILL GABAPENTIN CAPSULE, 100 MG, 1 CAP, ORALLY, TID, 30 DAY(S), 90 CAPSULE, REFILLS 1 PROCEDURES PN WORKMANS' COMP OPINION IN YOUR OPINION, WAS THE INCIDENT THAT THE PATIENT DESCRIBED THE COMPETENT MEDICAL CAUSE OF THIS INJURY/ILLNESS? YES ARE THE PATIENT'S COMPLAINTS CONSISTENT WITH HIS/HER HISTORY OF THE INJURY/ILLNESS? YES IS THE PATIENT'S HISTORY OF THE INJURY/ILLNESS CONSISTENT WITH YOUR OBJECTIVE FINDING? YES WHAT IS THE PERCENTAGE OF TEMPORARY IMPAIRMENT? TOTAL = 100% IS THE PATIENT WORKING? NO DOCTOR ON SITE: MAYCOL FRANCISCO MD PROCEDURE CODES FA211 ESTABILISHED PATIENT [facility] FACILITY CHARGE 10730 OFFICE/OUTPATIENT VISIT EST G8730 PAIN ASSESS POS TOOL F/U PLAN DOC G8427 DOC MEDS VERIFIED W/PT OR RE DISPOSITION & COMMUNICATION FOLLOW UP 3 MONTHS ELECTRONICALLY SIGNED BY MAYCOL CHENG MD ON 01/29/2017 AT 10:55 AM EDT DISCLAIMER : THIS IS A VISIT SUMMARY EXTRACTED FROM THE [employer] CHART. IT IS NOT A COPY OF THE [employer] PROGRESS NOTE. TESS
== END ==
LOC: M PAIN 11:30
PROVIDERS: ATTEND Anesthesiology
DX: G89.29 Other chronic pain (principal); M25.511 Pain in right shoulder; G90.519 Complex regional pain syndrome I of unspecified upper limb; M79.1 Myalgia; Z88.0 Allergy status to penicillin; Z88.2 Allergy status to sulfonamides; Z88.8 Allergy status to other drugs, medicaments and biological substances; Z79.899 Other long term (current) drug therapy

== ENCOUNTER → 2017-06-14 | Outpatient (CLI) | payer OTHER | LOC: M PAIN 11:15 | DX: M54.2 Cervicalgia (principal); M79.1 Myalgia; K44.9 Diaphragmatic hernia without obstruction or gangrene; Z79.899 Other long term (current) drug therapy; Z88.0 Allergy status to penicillin; Z88.2 Allergy status to sulfonamides; Z88.8 Allergy status to other drugs, medicaments and biological substances | CPT/HCPCS: G0463 ==

== ENCOUNTER → 2017-09-13 | Outpatient (CLI) | payer OTHER | END | disposition home or self-care (01) | LOC: M PAIN 09:30 | DX: G89.29 Other chronic pain (principal); M79.1 Myalgia; M54.2 Cervicalgia; G90.511 Complex regional pain syndrome I of right upper limb; K21.9 Gastro-esophageal reflux disease without esophagitis; Z79.899 Other long term (current) drug therapy; Z88.0 Allergy status to penicillin; Z88.2 Allergy status to sulfonamides; Z88.8 Allergy status to other drugs, medicaments and biological substances | CPT/HCPCS: G0463 ==

== ENCOUNTER → 2017-12-31 | Outpatient (CLI) | payer OTHER | LOC: M PAIN 10:45 | DX: M79.1 Myalgia (principal); M54.2 Cervicalgia; K44.9 Diaphragmatic hernia without obstruction or gangrene; Z79.899 Other long term (current) drug therapy; Z88.0 Allergy status to penicillin; Z88.2 Allergy status to sulfonamides; Z88.8 Allergy status to other drugs, medicaments and biological substances | CPT/HCPCS: G0463 ==

== ENCOUNTER → 2018-04-04 | Outpatient (CLI) | payer OTHER | LOC: M PAIN 11:00 | DX: M79.18 Myalgia, other site (principal); M54.2 Cervicalgia; G90.511 Complex regional pain syndrome I of right upper limb; K21.9 Gastro-esophageal reflux disease without esophagitis; K44.9 Diaphragmatic hernia without obstruction or gangrene; Z79.899 Other long term (current) drug therapy; Z88.0 Allergy status to penicillin; Z88.2 Allergy status to sulfonamides; Z88.8 Allergy status to other drugs, medicaments and biological substances | CPT/HCPCS: G0463 ==

== ENCOUNTER → 2018-08-26 | Outpatient (CLI) | payer OTHER ==
[~2018-08-26] MED LIST changes: -IBUP200C10 PO; +IBUP200C25 PO
--- NOTE | 2018-09-07 23:48 | ECWPNPC ---
PATIENT NAME: GAUTAM CHAVES : 1965 GENDER: FEMALE VISIT DATE: 08/26/2018 DISCHARGE DATE: 08/26/18 1304 VISIT LOCKED DATE TIME: PHYSICIAN: MAYCOL CHENG MD RESOURCE: MAYCOL CHENG MD REASON FOR APPOINTMENT 1. WC RIGHT NECK/SHOULDER HISTORY OF PRESENT ILLNESS HISTORY OF PRESENT ILLNESS: PAIN THE PATIENT DESCRIBES THE PAIN... 53 YEAR OLD FEMALE PATIENT WITH A HISTORY OF CHRONIC NECK AND RIGHT SHOULDER PAIN. THE PATIENT DESCRIBES THE PAIN ACHING, BURNING, SORE, TENDER, SHARP, STABBING, AND CONTINUOUS WITH A PAIN SCORE OF 7-10/10 DEPENDING ON PHYSICAL ACTIVITY. THE PATIENT WAS HURT IN A WORK RELATED INJURY ON 07/12/2003 WHILE WORKING FOR [employer] WHEN SHE WAS LIFTING AN 80 POUND BIN OF PASTA AND INJURED HER NECK AND RIGHT SHOULDER. 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 THE PATIENT IS CURRENTLY USING GABAPENTIN, BACLOFEN, AND TYLENOL TO AID IN PAIN RELIEF. THE PATIENT SAYS THE USE OF THESE MEDICATIONS HELP REMAIN MOBILE AND FUNCTIONAL. PATIENT DENIES UNEXPLAINABLE WEIGHT LOSS, FEVER, CHILLS, NEW CHANGES ON HER URINARY OR BOWEL CONTROL. FALL RISK SCREENING: SCREENING :NO FALLS REPORTED IN THE LAST YEAR CURRENT MEDICATIONS TAKING ACETAMINOPHEN 500 MG TABLET 1 TO 2 TABLET NEEDED ORALLY EVERY 6 HRS PRN FOR PAIN MDD6 TAKING CLARITIN-D 24 HOUR 10-240 MG/24HR TABLET EXTENDED RELEASE 24 HOUR 1 TABLET NEEDED ORALLY ONCE A DAY TAKING SENOKOT S 8.6-50 MG TABLET 1 TABLET IN THE EVENING NEEDED ORALLY ONCE A DAY TAKING GABAPENTIN 100 MG CAPSULE 1 CAP ORALLY TID TAKING BACLOFEN 10 MG TABLET 1 TABLET WITH FOOD OR MILK ORALLY EVERY 8 HRS PRN SPASM MDD=3 NOT-TAKING TRAMADOL HCL 50 MG TABLET 1 TABLET ORALLY FOR PAIN EVERY 8-12 HRS PRN PAIN MDD=2 NOT-TAKING IBUPROFEN 200 MG TABLET 1 TABLET NEEDED ORALLY EVERY 6 HRS MEDICATION LIST REVIEWED AND RECONCILED WITH THE PATIENT PAST MEDICAL HISTORY COMPLEX REGIONAL PAIN SYNDROME RIGHT ARM ESOPHAGEAL REFLUX DIAPHRAGMATIC HERNIA MYOFASCIAL PAIN SYNDROME ALLERGIES PENICILLIN (FOR ALLERGIES USE ONLY): UNKNOWN REACTION SULFA (FOR ALLERGY USE ONLY): UNKNOWN REACTION CYCLOBENZAPRINE HCL: ABDOMINAL PAIN - SIDE EFFECTS GABAPENTIN: HIGH DOSE CONFUSION/MEMORY LOSS - SIDE EFFECTS SURGICAL HISTORY RIGHT SHOULDER SCOPE 2007 UTERINE ABLATION 2012 TONSILLECTOMY FAMILY HISTORY FATHER: DIAGNOSED WITH HYPERTENSION SOCIAL HISTORY GENERAL: TOBACCO USE ARE YOU A: NONSMOKER . LATEX QUESTIONNAIRE LATEX ALLERGY : HAVE YOU EVER DEVELOPED ANY TYPE OF REACTION AFTER HANDLING LATEX PRODUCTS SUCH RUBBER GLOVES, CONDOMS, DIAPHRAGMS, BALLOONS, SOCKS, OR UNDERWEAR?NO LATEX ALLERGY : HAVE YOU EVER DEVELOPED ANY TYPE OF REACTION DURING OR AFTER DENTAL APPOINTMENT, VAGINAL/RECTAL EXAMINATION, SURGICAL PROCEDURE, OR ANY OTHER EXPOSURE?NO LATEX RISK : HAVE YOU EVER HAD ANY DIFFICULTY BREATHING OR HIVES AFTER EATING OR HANDLING ANY FRUITS, OR VEGETABLES; SUCH KIWI, BANANAS, STONE FRUITS, OR CHESTNUTSNO LATEX RISK : DO YOU HAVE A PREVIOUS PERSONAL HISTORY OF MORE THAN NINE SURGERIES, SPINA BIFIDA, OR REPEATED CATHERTIZATIONS? NO LATEX RISK : ARE YOU FREQUENTLY EXPOSED TO LATEX PRODUCTS IN YOUR OCCUPATION?NO DATE ASKED : 08/26/2018 LUTHERAN LUTHERAN NO PREFERENCE LANGUAGE LANGUAGES SPOKEN:DANISH LEARNING BARRIERS / SPECIAL NEEDS ORIENTED TO PLAN OF CARE: PATIENT, PAIN MANAGEMENT PATIENT, ORIENTED TO PLAN OF CARE: PATIENT, PAIN MANAGEMENT PATIENT. NEW PATIENT PAIN DIARY FROM 0-10, WHAT LEVEL IS YOUR PAIN TODAY?8 PAIN CLINIC PFS, CLERGY, PUBLIC HEALTH REFERRALS PFS REFERRAL NEEDED?NO CLERGY REFERRAL NEEDED?NO PUBLIC HEALTH REFERRAL NEEDED?NO WAS THE PROVIDER NOTIFIED OF ANY PERTINENT INFO?NO HAS THE PATIENT BEEN EDUCATED REGARDING HIS/HER PLAN OF CARE?YES HAS THE PATIENT BEEN EDUCATED REGARDING PAIN, THE RISK FOR PAIN, THE IMPORTANCE OF EFFECTIVE PAIN MANAGEMENT, AND THE PAIN ASSESSMENT PROCESS?YES ADVANCE DIRECTIVE ADVANCE DIRECTIVE DISCUSSED WITH PATIENT:YES INFORMATION GIVEN ABOUT HEALTH CARE PROXY, DECLINES ASSISTANCE AT THIS TIME. 08/26/18 REVIEWED WITH PT 08/26/18 1047 BV. HOSPITALIZATION/MAJOR DIAGNOSTIC PROCEDURE TONSILLECTOMY REVIEW OF SYSTEMS REVIEWED BY: PROVIDER: MAYCOL CHENG MD . CONSTITUTIONAL: ANY CHANGE IN YOUR MEDICAL CONDITION? NO . CHILLS NO . FEVER NO . INFECTION: DO YOU HAVE NEW INFECTIONS? NO . DO YOU HAVE HISTORY OF MRSA? NO . MUSCULOSKELETAL: ANY NEW PATTERNS OF PAIN OR NUMBNESS? YES, PT STATES SHE HAD HAD INCREASING SPASMS IN NECK AND BILATERAL SHOULDERS FOR THE PAST COUPLE DAYS, STATES SHE SAID THE WEATHER CHANGES SEEMS TO INCREASE HER SPASMS. . GASTROENTEROLOGY: ANY NEW CHANGE IN BOWEL CONTROL? NO . GENITOURINARY: ANY NEW CHANGE IN BLADDER CONTROL? NO . IS THERE A CHANCE YOU COULD BE ? NO . HEMATOLOGY/LYMPH: DO YOU TAKE ANY BLOOD THINNERS? (FOR EXAMPLE- COUMADIN, PLAVIX, AGGRENOX, PLATEL, PRADAXA, OR XARELTO) NO . WHEN WAS YOUR LAST DOSE? DATE: TIME: . NEUROLOGY: HAVE YOU FALLEN IN THE PAST 12 MONTHS? NO . ANY NEW EXTREMITY NUMBNESS OR WEAKNESS? NO . CARDIOLOGY: DO YOU HAVE A PACEMAKER OR DEFIBRILLATOR? NO . RESPIRATORY: HAVE YOU BEEN SICK IN THE PAST WEEK? NO . FEVER NO . FLU LIKE SYMPTOMS? NO . COUGH NO . INTEGUMENTARY: DO YOU HAVE ANY RASHES OR OPEN SORES? NO . ALLERGIC/IMMUNO: ARE YOU ALLERGIC TO IV DYE? NO . ANY NEW ALLERGIES? NO . PSYCHIATRIC: DO YOU HAVE THOUGHTS OF HURTING YOURSELF OR SOMEONE ELSE? NO . ARE YOU ABUSED, NEGLECTED, OR IN AN UNSAFE ENVIRONMENT? NO . ENDOCRINOLOGY: ARE YOU DIABETIC? NO . OTHER: DO YOU NEED ANY PRESCRIPTIONS? NO . IF YES, PLEASE LIST: ____ . ANY NEW PROBLEMS WITH YOUR MEDICATIONS? NO . WHEN DID YOU LAST EAT? ____ . WHEN DID YOU LAST DRINK? ____ . WHAT DID YOU LAST DRINK? ____ . NAME OF PERSON DRIVING YOU HOME? ____ . DO YOU HAVE ANY OTHER QUESTIONS OR CONCERNS NO . VITAL SIGNS WT 203 LBS, HT 69 IN, BMI 29.97 INDEX, BP 170/67 MM HG, HR 50 /MIN, RR 16 /MIN, TEMP 97.3 F, OXYGEN SAT % 99%, NA INITIALS AW 1051, REVIEWED BY: BV. EXAMINATION GENERAL EXAMINATION: PATIENT IS ALERT O X 3 AND COOPERATIVE. PATIENT IS UNABLE TO ABDUCT THE RIGHT ARM. RIGHT ARM IS WEAKER AT EXTENSION AND FLEXION. TENDERNESS OVER THE RIGHT SHOULDER AREA. PRESENCE OF TRIGGER POINTS AND BANDS OF TISSUE WITH RESTRICTION OF MOVEMENT OF THE NECK AND RIGHT SHOULDER. MRI OF THE CERVICAL SPINE DONE ON 05/31/2015 SHOWS A FAR RIGHT LATERAL T2-T3 DISC HERNIATION. ASSESSMENTS PAIN IN RIGHT SHOULDER - M25.511 (PRIMARY) OTHER CHRONIC PAIN - G89.29 NEURALGIA OF RIGHT UPPER EXTREMITY - M79.2 CERVICALGIA - M54.2 MYALGIA - M79.10 TREATMENT PAIN IN RIGHT SHOULDER CLINICAL NOTES: WE DISCUSSED SEVERAL ISSUES WITH MRS. CHAVES'S PAIN MANAGEMENT CASE. I WOULD LIKE THE PATIENT TO START USING CYMBALTA FOR THE SOMATIC PAIN. I WOULD LIKE THE PATIENT TO USE IBUPROFEN NEEDED IN PLACE OF THE TYLENOL. THE PATIENT WILL CONTINUE USING GABAPENTIN FOR THE NEUROPATHIC PAIN. I WILL REDUCE THE PATIENT'S BACLOFEN TO 75 TABLETS PER MONTH FOR SPASMS AND PAIN. I WOULD LIKE TO GET IMAGING OF THE PATIENT'S RIGHT SHOULDER. THE PATIENT WILL FOLLOW UP IN 3 MONTHS. INSTRUCTIONS WERE GIVEN, QUESTIONS WERE ANSWERED, PATIENT REPORTS UNDERSTANDING AND AGREES WITH THE PLAN. I, LILIBETH SORIANO, DOCUMENTED THE ABOVE INFORMATION ACTING A SCRIBE FOR DR. CHENG. I HAVE REVIEWED THE ABOVE DOCUMENT, WRITTEN BY LILIBETH ELIASIBClifton AND I VERIFY THAT IT IS ACCURATE. . OTHERS REFILL IBUPROFEN TABLET, 800 MG, 1 TABLET NEEDED, ORALLY WITH FOOD FOR PAIN, EVERY 8 HRS MDD3, 30 DAYS, 75, REFILLS 0 REFILL DULOXETINE HCL CAPSULE DELAYED RELEASE PARTICLES, 30 MG, 1 CAPSULE, ORALLY WITH FOOD, ONCE A DAY FOR PAIN, 30 DAY(S), 30, REFILLS 0 PROCEDURES PN WORKMANS' COMP OPINION IN YOUR OPINION, WAS THE INCIDENT THAT THE PATIENT DESCRIBED THE COMPETENT MEDICAL CAUSE OF THIS INJURY/ILLNESS? YES ARE THE PATIENT'S COMPLAINTS CONSISTENT WITH HIS/HER HISTORY OF THE INJURY/ILLNESS? YES IS THE PATIENT'S HISTORY OF THE INJURY/ILLNESS CONSISTENT WITH YOUR OBJECTIVE FINDING? YES WHAT IS THE PERCENTAGE OF TEMPORARY IMPAIRMENT? TOTAL = 100% IS THE PATIENT WORKING? NO DOCTOR ON SITE: MAYCOL FRANCISCO MD PREVENTIVE MEDICINE PAIN CLINIC TEACHING: MEDICATIONS PT DECLINED CYMBALTA HANDOUT. EM. PROCEDURE CODES FA211 ESTABILISHED PATIENT [facility] FACILITY CHARGE G8427 CURRENT MEDS W/DOSAGES DOCUMENTED G8730 PAIN ASSESS POS TOOL F/U PLAN DOC DISPOSITION & COMMUNICATION FOLLOW UP 3 MONTHS ELECTRONICALLY SIGNED BY MAYCOL CHENG MD, MD ON 09/07/2018 AT 08:56 PM EDT DISCLAIMER : THIS IS A VISIT SUMMARY EXTRACTED FROM THE [employer] CHART. IT IS NOT A COPY OF THE [employer] PROGRESS NOTE. MTDD
== END ==
LOC: M PAIN 10:30
PROVIDERS: ATTEND Anesthesiology
DX: M25.511 Pain in right shoulder (principal); G89.29 Other chronic pain; M79.2 Neuralgia and neuritis, unspecified; M54.2 Cervicalgia; M79.10 Myalgia, unspecified site; Z79.899 Other long term (current) drug therapy; Z88.0 Allergy status to penicillin; Z88.2 Allergy status to sulfonamides; Z88.8 Allergy status to other drugs, medicaments and biological substances

== ENCOUNTER → 2018-11-24 | Outpatient (CLI) | payer OTHER ==
--- NOTE | 2018-12-04 01:14 | ECWPNPC ---
PATIENT NAME: GAUTAM CHAVES : 1965 GENDER: FEMALE VISIT DATE: 11/24/2018 DISCHARGE DATE: 11/24/18 1032 VISIT LOCKED DATE TIME: PHYSICIAN: ARSALAN ARIAS RESOURCE: ARSALAN ARIAS REASON FOR APPOINTMENT 1. W/C NECK HISTORY OF PRESENT ILLNESS HISTORY OF PRESENT ILLNESS: 53 YEAR OLD FEMALE PATIENT WITH A HISTORY OF CHRONIC NECK AND RIGHT SHOULDER PAIN. THE PATIENT DESCRIBES THE PAIN ACHING, BURNING, SORE, TENDER, SHARP, STABBING, AND CONTINUOUS WITH A PAIN SCORE OF 7-8/10 DEPENDING ON PHYSICAL ACTIVITY. THE PATIENT WAS HURT IN A WORK RELATED INJURY ON 07/12/2003 WHILE WORKING FOR [employer] WHEN SHE WAS LIFTING AN 80 POUND BIN OF PASTA AND INJURED HER NECK AND RIGHT SHOULDER. THE PATIENT SAYS THAT SHE HAS DIFFICULTY DOING DAILY ACTIVITIES. THE PATIENT IS CURRENTLY USING GABAPENTIN, BACLOFEN, AND IBUPROFEN TO AID IN PAIN RELIEF. THE PATIENT SAYS THE USE OF THESE MEDICATIONS HELP REMAIN MOBILE AND FUNCTIONAL. PATIENT WAS TO BE STARTED ON CYMBALTA HOWEVER, COMP DENIED COVERAGE. PAIN THE PATIENT DESCRIBES THE PAIN... THE PATIENT DESCRIBES THE PAIN... FALL RISK SCREENING: SCREENING :NO FALLS REPORTED IN THE LAST YEAR CURRENT MEDICATIONS TAKING ACETAMINOPHEN 500 MG TABLET 1 TO 2 TABLET NEEDED ORALLY EVERY 6 HRS PRN FOR PAIN MDD6 TAKING CLARITIN-D 24 HOUR 10-240 MG/24HR TABLET EXTENDED RELEASE 24 HOUR 1 TABLET NEEDED ORALLY ONCE A DAY TAKING SENOKOT S 8.6-50 MG TABLET 1 TABLET IN THE EVENING NEEDED ORALLY ONCE A DAY TAKING GABAPENTIN 100 MG CAPSULE 1 CAP ORALLY TID TAKING BACLOFEN 10 MG TABLET 1 TABLET WITH FOOD OR MILK ORALLY EVERY 8 HRS PRN SPASM MDD=3 NOT-TAKING IBUPROFEN 200 MG TABLET 1 TABLET NEEDED ORALLY EVERY 6 HRS NOT-TAKING DULOXETINE HCL 30 MG CAPSULE DELAYED RELEASE PARTICLES 1 CAPSULE ORALLY ONCE A DAY, NOTES: HASN'T BEEN APPROVED DISCONTINUED TRAMADOL HCL 50 MG TABLET 1 TABLET ORALLY FOR PAIN EVERY 8-12 HRS PRN PAIN MDD=2 MEDICATION LIST REVIEWED AND RECONCILED WITH THE PATIENT PAST MEDICAL HISTORY COMPLEX REGIONAL PAIN SYNDROME RIGHT ARM ESOPHAGEAL REFLUX DIAPHRAGMATIC HERNIA MYOFASCIAL PAIN SYNDROME CHRONIC NECK PAIN ALLERGIES PENICILLIN (FOR ALLERGIES USE ONLY): UNKNOWN REACTION - ALLERGY SULFA (FOR ALLERGY USE ONLY): UNKNOWN REACTION - ALLERGY CYCLOBENZAPRINE HCL: ABDOMINAL PAIN - SIDE EFFECTS GABAPENTIN: HIGH DOSE CONFUSION/MEMORY LOSS - SIDE EFFECTS SEASONAL: SINUS CONGESTION, ITCHY EYES - ALLERGY SURGICAL HISTORY RIGHT SHOULDER SCOPE 2007 UTERINE ABLATION 2012 TONSILLECTOMY FAMILY HISTORY FATHER: , PROSTATE CA, DIAGNOSED WITH CANCER MOTHER: ALIVE, DIABETES 1DAUGHTER(S) - HEALTHY. SOCIAL HISTORY GENERAL: TOBACCO USE ARE YOU A: NONSMOKER. PAIN CLINIC PFS, CLERGY, PUBLIC HEALTH REFERRALS PFS REFERRAL NEEDED?NO CLERGY REFERRAL NEEDED?NO PUBLIC HEALTH REFERRAL NEEDED?NO WAS THE PROVIDER NOTIFIED OF ANY PERTINENT INFO? N/A HAS THE PATIENT BEEN EDUCATED REGARDING HIS/HER PLAN OF CARE?YES HAS THE PATIENT BEEN EDUCATED REGARDING PAIN, THE RISK FOR PAIN, THE IMPORTANCE OF EFFECTIVE PAIN MANAGEMENT, AND THE PAIN ASSESSMENT PROCESS?YES LATEX QUESTIONNAIRE LATEX ALLERGY : HAVE YOU EVER DEVELOPED ANY TYPE OF REACTION AFTER HANDLING LATEX PRODUCTS SUCH RUBBER GLOVES, CONDOMS, DIAPHRAGMS, BALLOONS, SOCKS, OR UNDERWEAR?NO LATEX ALLERGY : HAVE YOU EVER DEVELOPED ANY TYPE OF REACTION DURING OR AFTER DENTAL APPOINTMENT, VAGINAL/RECTAL EXAMINATION, SURGICAL PROCEDURE, OR ANY OTHER EXPOSURE?NO LATEX RISK : HAVE YOU EVER HAD ANY DIFFICULTY BREATHING OR HIVES AFTER EATING OR HANDLING ANY FRUITS, OR VEGETABLES; SUCH KIWI, BANANAS, STONE FRUITS, OR CHESTNUTSNO LATEX RISK : DO YOU HAVE A PREVIOUS PERSONAL HISTORY OF MORE THAN NINE SURGERIES, SPINA BIFIDA, OR REPEATED CATHERTIZATIONS? NO LATEX RISK : ARE YOU FREQUENTLY EXPOSED TO LATEX PRODUCTS IN YOUR OCCUPATION?NO DATE ASKED : 11/24/2018 CAFFEINE CAFFEINE USE?YES HOW OFTEN AND HOW MUCH? 1-1 1/2 CUPS COFFEE/DAY ADVANCE DIRECTIVE ADVANCE DIRECTIVE DISCUSSED WITH PATIENT:YES 11/24/18 PT DOES NOT HAVE ANY ADVANCED DIRECTIVES AND STATES SHE ALREADY HAD HCP INFORMATION. ASSISTANCE OFFERED IN COMPLETING FORM IF NEEDED. 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 HOSPITALIZATION/MAJOR DIAGNOSTIC PROCEDURE TONSILLECTOMY REVIEW OF SYSTEMS REVIEWED BY: PROVIDER: FRANKO MAKI . CONSTITUTIONAL: ANY CHANGE IN YOUR MEDICAL CONDITION? NO . CHILLS NO . FEVER NO . INFECTION: DO YOU HAVE NEW INFECTIONS? NO . DO YOU HAVE HISTORY OF MRSA? NO . MUSCULOSKELETAL: ANY NEW PATTERNS OF PAIN OR NUMBNESS? NO . GASTROENTEROLOGY: ANY NEW CHANGE IN BOWEL CONTROL? NO . GENITOURINARY: ANY NEW CHANGE IN BLADDER CONTROL? NO . IS THERE A CHANCE YOU COULD BE ? NO . HEMATOLOGY/LYMPH: DO YOU TAKE ANY BLOOD THINNERS? (FOR EXAMPLE- COUMADIN, PLAVIX, AGGRENOX, PLATEL, PRADAXA, OR XARELTO) NO . WHEN WAS YOUR LAST DOSE? DATE: TIME: . NEUROLOGY: HAVE YOU FALLEN IN THE PAST 12 MONTHS? NO . ANY NEW EXTREMITY NUMBNESS OR WEAKNESS? NO . CARDIOLOGY: DO YOU HAVE A PACEMAKER OR DEFIBRILLATOR? NO . RESPIRATORY: HAVE YOU BEEN SICK IN THE PAST WEEK? NO . FEVER NO . FLU LIKE SYMPTOMS? NO . COUGH NO . INTEGUMENTARY: DO YOU HAVE ANY RASHES OR OPEN SORES? NO . ALLERGIC/IMMUNO: ARE YOU ALLERGIC TO IV DYE? NO . ANY NEW ALLERGIES? NO . PSYCHIATRIC: DO YOU HAVE THOUGHTS OF HURTING YOURSELF OR SOMEONE ELSE? NO . ARE YOU ABUSED, NEGLECTED, OR IN AN UNSAFE ENVIRONMENT? NO . ENDOCRINOLOGY: ARE YOU DIABETIC? NO . OTHER: DO YOU NEED ANY PRESCRIPTIONS? NO . IF YES, PLEASE LIST: ____ . ANY NEW PROBLEMS WITH YOUR MEDICATIONS? NO . WHEN DID YOU LAST EAT? ____ . WHEN DID YOU LAST DRINK? ____ . WHAT DID YOU LAST DRINK? ____ . NAME OF PERSON DRIVING YOU HOME? ____ . DO YOU HAVE ANY OTHER QUESTIONS OR CONCERNS NO . VITAL SIGNS WT 202.2 LBS, HT 69 IN, BMI 29.86 INDEX, BP 126/66 MM HG, HR 58 /MIN, RR 16 /MIN, TEMP 97.4 F, OXYGEN SAT % 99%, SAFE IN ENV? (Y/N) Y, NA INITIALS AW 0959, REVIEWED BY: AD. EXAMINATION GENERAL EXAMINATION: GENERALNO ACUTE DISTRESS, WELL NOURISHED AND HYDRATED. PSYCHAPPROPRIATE MOOD AND AFFECT . LUNGS:CLEAR TO AUSCULTATION BILATERALLY, NO WHEEZES, RHONCHI, RALES. HEART:NO MURMURS, REGULAR RATE AND RHYTHM. ASSESSMENTS NECK PAIN, CHRONIC - M54.2 (PRIMARY) CERVICALGIA - M54.2 TREATMENT NECK PAIN, CHRONIC START AMITRIPTYLINE HCL TABLET, 10 MG, 1 TABLET AT BEDTIME, ORALLY, ONCE A DAY, 30 DAY(S), 30 CLINICAL NOTES: 53 YEAR OLD FEMALE IN FOR WORKERS COMP CHRONIC PAIN FOLLOW UP. AT LAST VISIT SHE WAS PRESCRIBED CYMBALTA HOWEVER, COMP WOULD NOT COVER THIS SO SHE DID NOT START IT. SHE DOES ADMIT THE MEDICATIONS SHE IS CURRENTLY ON HAVE HELPED WITH HER PAIN BUT FURTHER STATES SHE HAS MOMENTS OF INCREASED PAIN. DISCUSSED STARTING AMITRIPTYLINE WITH PATIENT, SHOULD COMP COVER IT, AND SHE WAS AMENABLE TO THIS. AMITRIPTYLINE DISCUSSED WITH DR. CHENG AND HE WAS IN AGREEMENT. WILL START PATIENT ON AMITRIPTYLINE WITH FOLLOW UP IN 1 MONTH TO DETERMINE EFFICACY OF TREATMENT. PATIENT HAS EXPRESSED UNDERSTANDING OF AND WAS IN AGREEMENT WITH TX PLAN. . OTHERS STOP DULOXETINE HCL CAPSULE DELAYED RELEASE PARTICLES, 30 MG, 1 CAPSULE, ORALLY, ONCE A DAY, NOTES: HASN'T BEEN APPROVED PROCEDURES PN WORKMANS' COMP OPINION IN YOUR OPINION, WAS THE INCIDENT THAT THE PATIENT DESCRIBED THE COMPETENT MEDICAL CAUSE OF THIS INJURY/ILLNESS? YES ARE THE PATIENT'S COMPLAINTS CONSISTENT WITH HIS/HER HISTORY OF THE INJURY/ILLNESS? YES IS THE PATIENT'S HISTORY OF THE INJURY/ILLNESS CONSISTENT WITH YOUR OBJECTIVE FINDING? YES WHAT IS THE PERCENTAGE OF TEMPORARY IMPAIRMENT? MODERATE TO MARKED = 66.7% IS THE PATIENT WORKING? NO DOCTOR ON SITE: MAYCOL FRANCISCO MD PROCEDURE CODES FA211 ESTABILISHED PATIENT [facility] FACILITY CHARGE DISPOSITION & COMMUNICATION FOLLOW UP 4 WEEKS (REASON: PAIN MEDICATION CHANGE) ELECTRONICALLY SIGNED BY VIET GRADY ON 12/03/2018 AT 04:22 PM EDT DISCLAIMER : THIS IS A VISIT SUMMARY EXTRACTED FROM THE [employer] CHART. IT IS NOT A COPY OF THE [employer] PROGRESS NOTE. MTDD
== END ==
LOC: M PAIN 10:30
PROVIDERS: ATTEND Family Medicine
DX: M54.2 Cervicalgia (principal); K21.9 Gastro-esophageal reflux disease without esophagitis; K44.9 Diaphragmatic hernia without obstruction or gangrene; M79.18 Myalgia, other site; J30.2 Other seasonal allergic rhinitis; G90.511 Complex regional pain syndrome I of right upper limb; Z79.899 Other long term (current) drug therapy; Z88.0 Allergy status to penicillin; Z88.2 Allergy status to sulfonamides; Z88.8 Allergy status to other drugs, medicaments and biological substances

== ENCOUNTER → 2019-03-05 | Outpatient (CLI) | payer OTHER | LOC: M PAIN 10:30 | PROVIDERS: ATTEND Family Medicine | DX: G90.519 Complex regional pain syndrome I of unspecified upper limb (principal); M54.2 Cervicalgia; K21.9 Gastro-esophageal reflux disease without esophagitis; K44.9 Diaphragmatic hernia without obstruction or gangrene; M79.18 Myalgia, other site; Z79.899 Other long term (current) drug therapy; Z88.0 Allergy status to penicillin; Z88.2 Allergy status to sulfonamides; Z88.8 Allergy status to other drugs, medicaments and biological substances; J30.2 Other seasonal allergic rhinitis ==

== ENCOUNTER → 2019-06-12 | Outpatient (CLI) | payer OTHER ==
--- NOTE | 2019-06-16 01:11 | ECWPNPC ---
PATIENT NAME: GAUTAM CHAVES : 1965 GENDER: FEMALE VISIT DATE: 06/12/2019 DISCHARGE DATE: 06/12/19 1215 VISIT LOCKED DATE TIME: PHYSICIAN: ARSALAN ARIAS RESOURCE: ARSALAN ARIAS REASON FOR APPOINTMENT 1. W/C MEDS HISTORY OF PRESENT ILLNESS HISTORY OF PRESENT ILLNESS: PAIN THE PATIENT DESCRIBES THE PAIN... 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 THE PATIENT SAYS THAT SHE HAS DIFFICULTY DOING DAILY ACTIVITIES. THE PATIENT IS CURRENTLY USING GABAPENTIN, BACLOFEN, AND IBUPROFEN TO AID IN PAIN RELIEF. THE PATIENT SAYS THE USE OF THESE MEDICATIONS HELP REMAIN MOBILE AND FUNCTIONAL. SHE RATES HER PAIN AT AN 8-9/10 AND DESCRIBES IT ACHING, BURNING, SORE, TENDER, SHARP, AND STABBING. SHE FEELS HER LEVEL OF PAIN CURRENTLY CORRESPONDS TO NOT BEING ON THE BACLOFEN CURRENTLY. FALL RISK SCREENING: SCREENING :NO FALLS REPORTED IN THE LAST YEAR CURRENT MEDICATIONS TAKING ACETAMINOPHEN 500 MG TABLET 1 TO 2 TABLET NEEDED ORALLY EVERY 6 HRS PRN FOR PAIN MDD6 TAKING CLARITIN-D 24 HOUR 10-240 MG/24HR TABLET EXTENDED RELEASE 24 HOUR 1 TABLET NEEDED ORALLY ONCE A DAY TAKING SENOKOT S 8.6-50 MG TABLET 1 TABLET IN THE EVENING NEEDED ORALLY ONCE A DAY TAKING GABAPENTIN 100 MG CAPSULE 1 CAP IN AM, 1 IN AFTERNOON, AND 2 AT BEDTIME ORALLY TID NOT-TAKING BACLOFEN 20 MG TABLET 1 TABLET WITH FOOD OR MILK ORALLY EVERY 8 HRS PRN SPASM MDD=3 NOT-TAKING IBUPROFEN 200 MG TABLET 1 TABLET NEEDED ORALLY EVERY 6 HRS NOT-TAKING AMITRIPTYLINE HCL 10 MG TABLET 1 TABLET AT BEDTIME ORALLY ONCE A DAY, NOTES: WORKERS COMP-WOULDN'T AUTHORIZE MEDICATION LIST REVIEWED AND RECONCILED WITH THE PATIENT PAST MEDICAL HISTORY COMPLEX REGIONAL PAIN SYNDROME RIGHT ARM ESOPHAGEAL REFLUX DIAPHRAGMATIC HERNIA-PT UNAWARE MYOFASCIAL PAIN SYNDROME CHRONIC NECK PAIN ALLERGIES PENICILLIN (FOR ALLERGIES USE ONLY): UNKNOWN REACTION - ALLERGY SULFA (FOR ALLERGY USE ONLY): UNKNOWN REACTION - ALLERGY CYCLOBENZAPRINE HCL: ABDOMINAL PAIN - SIDE EFFECTS GABAPENTIN: HIGH DOSE CONFUSION/MEMORY LOSS - SIDE EFFECTS SEASONAL: SINUS CONGESTION, ITCHY EYES - ALLERGY SURGICAL HISTORY RIGHT SHOULDER SCOPE 2007 UTERINE ABLATION 2012 TONSILLECTOMY FAMILY HISTORY FATHER: , PROSTATE CA, DIAGNOSED WITH OTHER MALIGNANT NEOPLASM OF UNSPECIFIED SITE MOTHER: ALIVE, DIABETES 1DAUGHTER(S) - HEALTHY. SOCIAL HISTORY GENERAL: TOBACCO USE ARE YOU A: NONSMOKER. PAIN CLINIC PFS, CLERGY, PUBLIC HEALTH REFERRALS PFS REFERRAL NEEDED?NO CLERGY REFERRAL NEEDED?NO PUBLIC HEALTH REFERRAL NEEDED?NO WAS THE PROVIDER NOTIFIED OF ANY PERTINENT INFO?YES N/A HAS THE PATIENT BEEN EDUCATED REGARDING HIS/HER PLAN OF CARE?YES HAS THE PATIENT BEEN EDUCATED REGARDING PAIN, THE RISK FOR PAIN, THE IMPORTANCE OF EFFECTIVE PAIN MANAGEMENT, AND THE PAIN ASSESSMENT PROCESS?YES LATEX QUESTIONNAIRE LATEX ALLERGY : HAVE YOU EVER DEVELOPED ANY TYPE OF REACTION AFTER HANDLING LATEX PRODUCTS SUCH RUBBER GLOVES, CONDOMS, DIAPHRAGMS, BALLOONS, SOCKS, OR UNDERWEAR?NO LATEX ALLERGY : HAVE YOU EVER DEVELOPED ANY TYPE OF REACTION DURING OR AFTER DENTAL APPOINTMENT, VAGINAL/RECTAL EXAMINATION, SURGICAL PROCEDURE, OR ANY OTHER EXPOSURE?NO LATEX RISK : HAVE YOU EVER HAD ANY DIFFICULTY BREATHING OR HIVES AFTER EATING OR HANDLING ANY FRUITS, OR VEGETABLES; SUCH KIWI, BANANAS, STONE FRUITS, OR CHESTNUTSNO LATEX RISK : DO YOU HAVE A PREVIOUS PERSONAL HISTORY OF MORE THAN NINE SURGERIES, SPINA BIFIDA, OR REPEATED CATHERIZATIONS? NO LATEX RISK : ARE YOU FREQUENTLY EXPOSED TO LATEX PRODUCTS IN YOUR OCCUPATION?NO DATE ASKED : 06/12/2019 CAFFEINE CAFFEINE USE?YES HOW OFTEN AND HOW MUCH? 1-1 1/2 CUPS COFFEE/DAY ADVANCE DIRECTIVE ADVANCE DIRECTIVE DISCUSSED WITH PATIENT:YES PT. DOES NOT HAVE ANY ADVANCED DIRECTIVES AND STATES SHE ALREADY HAD HCP INFORMATION. ASSISTANCE OFFERED IN COMPLETING FORM IF NEEDED. 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 YAZIDISM NO PREFERENCE LANGUAGE LANGUAGES SPOKEN:TURKMEN DOMESTIC VIOLENCE DO YOU FEEL SAFE IN YOUR ENVIRONMENT?YES ALCOHOL SCREENING DID YOU HAVE A DRINK CONTAINING ALCOHOL IN THE PAST YEAR?NO POINTS0 INTERPRETATIONNEGATIVE RECREATIONAL DRUG USE DRUG USE?NO LEARNING BARRIERS / SPECIAL NEEDS BARRIERS TO LEARNING?NO HEARING IMPAIRED?NO VISION IMPAIRED?YES COGNITIVELY IMPAIRED?NO :CORRECTIVE LENSES READING GLASSES READINESS TO LEARN?YES LEARNING PREFERENCES?NO LEARNING CAPABILITIES PRESENT?YES EMOTIONAL BARRIERS?NO SPECIAL DEVICES?NO CREATIVE/ART DIRECTOR NEEDED?NO REVIEWED WITH PT 08/26/18 1047 BVREVIEWED WITH PATIENT 2019-06-12 DS. HOSPITALIZATION/MAJOR DIAGNOSTIC PROCEDURE TONSILLECTOMY REVIEW OF SYSTEMS REVIEWED BY: PROVIDER: FRANKO LLANOS-C . CONSTITUTIONAL: ANY CHANGE IN YOUR MEDICAL CONDITION? NO . CHILLS NO . FEVER NO . INFECTION: DO YOU HAVE NEW INFECTIONS? NO . DO YOU HAVE HISTORY OF MRSA? NO . MUSCULOSKELETAL: ANY NEW PATTERNS OF PAIN OR NUMBNESS? YES, PT STATES THAT SHE IS NOW EXPERIENCING MIGRAINES NOW, VERY INTENSE, NAUSEATED, PT STATES THAT SHE WAS NOT HAVING ANY MIGRAINES WHILE ON BACLOFEN, NOW SINCE SHE HAS BEEN OFF, MIGRAINES HAVE RETURNED . GASTROENTEROLOGY: ANY NEW CHANGE IN BOWEL CONTROL? NO . GENITOURINARY: ANY NEW CHANGE IN BLADDER CONTROL? NO . IS THERE A CHANCE YOU COULD BE ? NO . HEMATOLOGY/LYMPH: DO YOU TAKE ANY BLOOD THINNERS? (FOR EXAMPLE- COUMADIN, PLAVIX, AGGRENOX, PLATEL, PRADAXA, OR XARELTO) NO . WHEN WAS YOUR LAST DOSE? DATE: TIME: . NEUROLOGY: HAVE YOU FALLEN IN THE PAST 12 MONTHS? NO . ANY NEW EXTREMITY NUMBNESS OR WEAKNESS? NO . CARDIOLOGY: DO YOU HAVE A PACEMAKER OR DEFIBRILLATOR? NO . RESPIRATORY: HAVE YOU BEEN SICK IN THE PAST WEEK? NO . FEVER NO . FLU LIKE SYMPTOMS? NO . COUGH NO . INTEGUMENTARY: DO YOU HAVE ANY RASHES OR OPEN SORES? NO . ALLERGIC/IMMUNO: ARE YOU ALLERGIC TO IV DYE? NO . ANY NEW ALLERGIES? NO . PSYCHIATRIC: DO YOU HAVE THOUGHTS OF HURTING YOURSELF OR SOMEONE ELSE? NO . ARE YOU ABUSED, NEGLECTED, OR IN AN UNSAFE ENVIRONMENT? NO . ENDOCRINOLOGY: ARE YOU DIABETIC? NO . OTHER: DO YOU NEED ANY PRESCRIPTIONS? YES, BACLOFEN, WONT FILL SCRIPT ANY LONGER . IF YES, PLEASE LIST: ____ . ANY NEW PROBLEMS WITH YOUR MEDICATIONS? NO . WHEN DID YOU LAST EAT? ____ . WHEN DID YOU LAST DRINK? ____ . WHAT DID YOU LAST DRINK? ____ . NAME OF PERSON DRIVING YOU HOME? ____ . DO YOU HAVE ANY OTHER QUESTIONS OR CONCERNS NO . VITAL SIGNS WT 203.6 LBS, HT 69 IN, BMI 30.06 INDEX, BP 105/56 MM HG, HR 61 /MIN, RR 16 /MIN, TEMP 96.7 F, OXYGEN SAT % 99, SAFE IN ENV? (Y/N) Y, REVIEWED BY: [id number]. EXAMINATION GENERAL EXAMINATION: GENERALNO ACUTE DISTRESS, WELL NOURISHED AND HYDRATED. PSYCHAPPROPRIATE MOOD AND AFFECT . LUNGS:CLEAR TO AUSCULTATION BILATERALLY, NO WHEEZES, RHONCHI, RALES. HEART:NO MURMURS, REGULAR RATE AND RHYTHM. 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 CHRONIC PAIN FOLLOW-UP. AT LAST CLINIC VISIT PATIENT WAS STARTED ON BACLOFEN AND SHE ADMITS THAT THIS MEDICATION WAS HELPFUL IN REDUCING HER PAIN AND INCREASING HER FUNCTIONALITY. 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 PATIENT HAS EXPRESSED UNDERSTANDING OF AND WAS IN AGREEMENT WITH TX PLAN. . PROCEDURES PN WORKMANS' COMP OPINION IN YOUR OPINION, WAS THE INCIDENT THAT THE PATIENT DESCRIBED THE COMPETENT MEDICAL CAUSE OF THIS INJURY/ILLNESS? YES ARE THE PATIENT'S COMPLAINTS CONSISTENT WITH HIS/HER HISTORY OF THE INJURY/ILLNESS? YES IS THE PATIENT'S HISTORY OF THE INJURY/ILLNESS CONSISTENT WITH YOUR OBJECTIVE FINDING? YES WHAT IS THE PERCENTAGE OF TEMPORARY IMPAIRMENT? MODERATE TO MARKED = 66.7% IS THE PATIENT WORKING? NO DOCTOR ON SITE: MAYCOL FRANCISCO MD PREVENTIVE MEDICINE PAIN CLINIC TEACHING: THE PATIENT HAS BEEN EDUCATED REGARDING PAIN, THE RISK FOR PAIN, THE IMPORTANCE OF EFFECTIVE PAIN MANAGEMENT, AND THE PAIN ASSESSMENT PROCESS. : REVIEWED AND DISCUSSED TREATMENT PLAN WITH PT, PT ACKNOWLEDGED UNDERSTANDING. DS PROCEDURE CODES FA211 ESTABILISHED PATIENT [facility] CHARGE DISPOSITION & COMMUNICATION FOLLOW UP 2 MONTHS (REASON: NECK PAIN WORKERS COMP) ELECTRONICALLY SIGNED BY VIET GRADY ON 06/15/2019 AT 03:38 PM EST DISCLAIMER : THIS IS A VISIT SUMMARY EXTRACTED FROM THE [employer] CHART. IT IS NOT A COPY OF THE [employer] PROGRESS NOTE. TESS
== END ==
LOC: M PAIN 11:15
PROVIDERS: ATTEND Family Medicine
DX: G90.519 Complex regional pain syndrome I of unspecified upper limb (principal); Z88.0 Allergy status to penicillin; Z88.2 Allergy status to sulfonamides; Z88.8 Allergy status to other drugs, medicaments and biological substances; Z79.899 Other long term (current) drug therapy

== ENCOUNTER → 2019-08-11 | Outpatient (CLI) | payer OTHER ==
--- NOTE | 2019-08-13 03:49 | ECWPNPC ---
PATIENT NAME: GAUTAM CHAVES : 1965 GENDER: FEMALE VISIT DATE: 08/11/2019 DISCHARGE DATE: 08/11/19 1143 VISIT LOCKED DATE TIME: PHYSICIAN: ARSALAN ARIAS RESOURCE: ARSALAN ARIAS REASON FOR APPOINTMENT 1. 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 CHRONIC PAIN FOLLOW-UP. 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 SHE RATES HER PAIN CURRENTLY AT A 78 OUT OF 10 AND DESCRIBES IT ACHING, SHARP, BURNING, SORE, AND TENDER. PATIENT WAS PREVIOUSLY AND GABAPENTIN AND BACLOFEN WHICH SHE FOUND HELPFUL HOWEVER WORKERS COMP HAS DENIED PAIN FOR THE BACLOFEN SO SHE IS CURRENTLY JUST ON THE GABAPENTIN. FALL RISK SCREENING: SCREENING :NO FALLS REPORTED IN THE LAST YEAR CURRENT MEDICATIONS TAKING ACETAMINOPHEN 500 MG TABLET 1 TO 2 TABLET NEEDED ORALLY EVERY 6 HRS PRN FOR PAIN MDD6 TAKING CLARITIN-D 24 HOUR 10-240 MG/24HR TABLET EXTENDED RELEASE 24 HOUR 1 TABLET NEEDED ORALLY ONCE A DAY TAKING SENOKOT S 8.6-50 MG TABLET 1 TABLET IN THE EVENING NEEDED ORALLY ONCE A DAY TAKING GABAPENTIN 100 MG CAPSULE 1 CAP IN AM, 1 IN AFTERNOON, AND 2 AT BEDTIME ORALLY TID NOT-TAKING BACLOFEN 20 MG TABLET 1 TABLET WITH FOOD OR MILK ORALLY EVERY 8 HRS PRN SPASM MDD=3 NOT-TAKING IBUPROFEN 200 MG TABLET 1 TABLET NEEDED ORALLY EVERY 6 HRS NOT-TAKING AMITRIPTYLINE HCL 10 MG TABLET 1 TABLET AT BEDTIME ORALLY ONCE A DAY, NOTES: WORKERS COMP-WOULDN'T AUTHORIZE MEDICATION LIST REVIEWED AND RECONCILED WITH THE PATIENT PAST MEDICAL HISTORY COMPLEX REGIONAL PAIN SYNDROME RIGHT ARM ESOPHAGEAL REFLUX DIAPHRAGMATIC HERNIA-PT UNAWARE MYOFASCIAL PAIN SYNDROME CHRONIC NECK PAIN ALLERGIES PENICILLIN (FOR ALLERGIES USE ONLY): UNKNOWN REACTION - ALLERGY SULFA (FOR ALLERGY USE ONLY): UNKNOWN REACTION - ALLERGY CYCLOBENZAPRINE HCL: ABDOMINAL PAIN - SIDE EFFECTS GABAPENTIN: HIGH DOSE CONFUSION/MEMORY LOSS - SIDE EFFECTS SEASONAL: SINUS CONGESTION, ITCHY EYES - ALLERGY SURGICAL HISTORY RIGHT SHOULDER SCOPE 2007 UTERINE ABLATION 2012 TONSILLECTOMY FAMILY HISTORY FATHER: , PROSTATE CA, DIAGNOSED WITH OTHER MALIGNANT NEOPLASM OF UNSPECIFIED SITE MOTHER: ALIVE, DIABETES 1DAUGHTER(S) - HEALTHY. SOCIAL HISTORY GENERAL: TOBACCO USE ARE YOU A: NONSMOKER. PAIN CLINIC PFS, CLERGY, PUBLIC HEALTH REFERRALS PFS REFERRAL NEEDED?NO CLERGY REFERRAL NEEDED?NO PUBLIC HEALTH REFERRAL NEEDED?NO WAS THE PROVIDER NOTIFIED OF ANY PERTINENT INFO?YES N/A HAS THE PATIENT BEEN EDUCATED REGARDING HIS/HER PLAN OF CARE?YES HAS THE PATIENT BEEN EDUCATED REGARDING PAIN, THE RISK FOR PAIN, THE IMPORTANCE OF EFFECTIVE PAIN MANAGEMENT, AND THE PAIN ASSESSMENT PROCESS?YES LATEX QUESTIONNAIRE LATEX ALLERGY : HAVE YOU EVER DEVELOPED ANY TYPE OF REACTION AFTER HANDLING LATEX PRODUCTS SUCH RUBBER GLOVES, CONDOMS, DIAPHRAGMS, BALLOONS, SOCKS, OR UNDERWEAR?NO LATEX ALLERGY : HAVE YOU EVER DEVELOPED ANY TYPE OF REACTION DURING OR AFTER DENTAL APPOINTMENT, VAGINAL/RECTAL EXAMINATION, SURGICAL PROCEDURE, OR ANY OTHER EXPOSURE?NO DATE ASKED : 06/12/2019 LATEX RISK : HAVE YOU EVER HAD ANY DIFFICULTY BREATHING OR HIVES AFTER EATING OR HANDLING ANY FRUITS, OR VEGETABLES; SUCH KIWI, BANANAS, STONE FRUITS, OR CHESTNUTSNO LATEX RISK : DO YOU HAVE A PREVIOUS PERSONAL HISTORY OF MORE THAN NINE SURGERIES, SPINA BIFIDA, OR REPEATED CATHERIZATIONS? NO LATEX RISK : ARE YOU FREQUENTLY EXPOSED TO LATEX PRODUCTS IN YOUR OCCUPATION?NO CAFFEINE CAFFEINE USE?YES HOW OFTEN AND HOW MUCH? 1-1 1/2 CUPS COFFEE/DAY ADVANCE DIRECTIVE ADVANCE DIRECTIVE DISCUSSED WITH PATIENT:YES PT. DOES NOT HAVE ANY ADVANCED DIRECTIVES AND STATES SHE ALREADY HAD HCP INFORMATION. ASSISTANCE OFFERED IN COMPLETING FORM IF NEEDED. 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 LANGUAGE LANGUAGES SPOKEN:BRITISH VIRGIN ISLANDER DOMESTIC VIOLENCE DO YOU FEEL SAFE IN YOUR ENVIRONMENT?YES ALCOHOL SCREENING DID YOU HAVE A DRINK CONTAINING ALCOHOL IN THE PAST YEAR?NO POINTS0 INTERPRETATIONNEGATIVE RECREATIONAL DRUG USE DRUG USE?NO LEARNING BARRIERS / SPECIAL NEEDS BARRIERS TO LEARNING?NO HEARING IMPAIRED?NO VISION IMPAIRED?YES COGNITIVELY IMPAIRED?NO :CORRECTIVE LENSES READING GLASSES READINESS TO LEARN?YES LEARNING PREFERENCES?NO LEARNING CAPABILITIES PRESENT?YES EMOTIONAL BARRIERS?NO SPECIAL DEVICES?NO 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 CONSTITUTIONAL: ANY CHANGE IN YOUR MEDICAL CONDITION? NO . CHILLS NO . FEVER NO . INFECTION: DO YOU HAVE NEW INFECTIONS? NO . DO YOU HAVE HISTORY OF MRSA? NO . MUSCULOSKELETAL: ANY NEW PATTERNS OF PAIN OR NUMBNESS? YES, SPASMS HAS GOTTEN WORSE SINCE PT IS NOT TAKEN BACLOFEN ANYMORE . GASTROENTEROLOGY: ANY NEW CHANGE IN BOWEL CONTROL? NO . GENITOURINARY: ANY NEW CHANGE IN BLADDER CONTROL? NO . IS THERE A CHANCE YOU COULD BE ? NO . HEMATOLOGY/LYMPH: DO YOU TAKE ANY BLOOD THINNERS? (FOR EXAMPLE- COUMADIN, PLAVIX, AGGRENOX, PLATEL, PRADAXA, OR XARELTO) NO . WHEN WAS YOUR LAST DOSE? DATE: TIME: . NEUROLOGY: HAVE YOU FALLEN IN THE PAST 12 MONTHS? NO . ANY NEW EXTREMITY NUMBNESS OR WEAKNESS? NO . CARDIOLOGY: DO YOU HAVE A PACEMAKER OR DEFIBRILLATOR? NO . RESPIRATORY: HAVE YOU BEEN SICK IN THE PAST WEEK? NO . FEVER NO . FLU LIKE SYMPTOMS? NO . COUGH NO . INTEGUMENTARY: DO YOU HAVE ANY RASHES OR OPEN SORES? NO . ALLERGIC/IMMUNO: ARE YOU ALLERGIC TO IV DYE? NO . ANY NEW ALLERGIES? NO . PSYCHIATRIC: DO YOU HAVE THOUGHTS OF HURTING YOURSELF OR SOMEONE ELSE? NO . ARE YOU ABUSED, NEGLECTED, OR IN AN UNSAFE ENVIRONMENT? NO . ENDOCRINOLOGY: ARE YOU DIABETIC? NO . OTHER: DO YOU NEED ANY PRESCRIPTIONS? NO . IF YES, PLEASE LIST: ____ . ANY NEW PROBLEMS WITH YOUR MEDICATIONS? NO . WHEN DID YOU LAST EAT? ____ . WHEN DID YOU LAST DRINK? ____ . WHAT DID YOU LAST DRINK? ____ . NAME OF PERSON DRIVING YOU HOME? ____ . DO YOU HAVE ANY OTHER QUESTIONS OR CONCERNS YES, POSSIBLE REPLACEMENT FOR BACLOFEN, W/C DOES NOT COVER MED ANYMORE. . VITAL SIGNS WT 207.4 LBS, HT 69 IN, BMI 30.62 INDEX, BP 108/53 MM HG, HR 63 /MIN, RR 16 /MIN, TEMP 97.0 F, OXYGEN SAT % 97%, SAFE IN ENV? (Y/N) YES, NA INITIALS AW 1102, REVIEWED BY: NITA PETERSON LPN. EXAMINATION GENERAL EXAMINATION: GENERALNO ACUTE DISTRESS, WELL NOURISHED AND HYDRATED. PSYCHAPPROPRIATE MOOD AND AFFECT . LUNGS:CLEAR TO AUSCULTATION BILATERALLY, NO WHEEZES, RHONCHI, RALES. HEART:NO MURMURS, REGULAR RATE AND RHYTHM. 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 CHRONIC PAIN FOLLOW-UP. GIVEN PRESENTING SYMPTOMS AND RESULTS OF PHYSICAL EXAMINATION RECOMMENDED FOLLOW-UP IN 2 MONTHS. PATIENT EXPRESSED UNDERSTANDING OF WAS IN AGREEMENT WITH TREATMENT PLAN. GIVEN TIME TO ASK QUESTIONS AND EXPRESS CONCERNS. PROCEDURES PN WORKMANS' COMP OPINION IN YOUR OPINION, WAS THE INCIDENT THAT THE PATIENT DESCRIBED THE COMPETENT MEDICAL CAUSE OF THIS INJURY/ILLNESS? YES ARE THE PATIENT'S COMPLAINTS CONSISTENT WITH HIS/HER HISTORY OF THE INJURY/ILLNESS? YES IS THE PATIENT'S HISTORY OF THE INJURY/ILLNESS CONSISTENT WITH YOUR OBJECTIVE FINDING? YES WHAT IS THE PERCENTAGE OF TEMPORARY IMPAIRMENT? MODERATE TO MARKED = 66.7% IS THE PATIENT WORKING? NO DOCTOR ON SITE: MAYCOL FRANCISCO MD PROCEDURE CODES FA211 ESTABILISHED PATIENT [facility] CHARGE DISPOSITION & COMMUNICATION FOLLOW UP 2 MONTHS (REASON: WORKER'S COMP. CHRONIC PAIN) ELECTRONICALLY SIGNED BY VIET GRADY ON 08/12/2019 AT 12:58 PM EDT DISCLAIMER : THIS IS A VISIT SUMMARY EXTRACTED FROM THE [email or web address] CHART. IT IS NOT A COPY OF THE [email or web address] PROGRESS NOTE. TESS
== END ==
LOC: M PAIN 10:45
PROVIDERS: ATTEND Family Medicine
DX: G90.519 Complex regional pain syndrome I of unspecified upper limb (principal); M54.2 Cervicalgia; Z79.899 Other long term (current) drug therapy; Z88.0 Allergy status to penicillin; Z88.2 Allergy status to sulfonamides; Z88.8 Allergy status to other drugs, medicaments and biological substances

== ENCOUNTER → 2019-10-12 | Outpatient (CLI) | payer OTHER ==
--- NOTE | 2019-10-14 04:40 | ECWPNPC ---
PATIENT NAME: GAUTAM CHAVES : 1965 GENDER: FEMALE VISIT DATE: 10/12/2019 DISCHARGE DATE: 10/12/19 1220 VISIT LOCKED DATE TIME: PHYSICIAN: ARSALAN ARIAS RESOURCE: ARSALAN ARIAS REASON FOR APPOINTMENT 1. W/C NECK PAIN HISTORY OF PRESENT ILLNESS HISTORY OF PRESENT ILLNESS: PAIN THE PATIENT DESCRIBES THE PAIN... PERMISSION REQUESTED AND RECEIVED FROM PATIENT TO PERFORM TELEPHONE VISIT. 54-YEAR-OLD FEMALE IN FOR WORKER'S COMP. CHRONIC PAIN FOLLOW-UP. SHE RATES HER PAIN CURRENTLY AT A 7 OUT OF 10 AND DESCRIBES IT A CONSTANT ACHE. SHE FEELS HER MEDICATIONS ARE HELPFUL AND DENIES MED SIDE EFFECTS THIS TIME. THE PATIENT WAS HURT IN A WORK RELATED INJURY ON 07/12/2003 WHILE WORKING FOR [employer] WHEN SHE WAS LIFTING AN 80 POUND BIN OF PASTA AND INJURED HER NECK AND RIGHT SHOULDER. FALL RISK SCREENING: SCREENING :NO FALLS REPORTED IN THE LAST YEAR CURRENT MEDICATIONS TAKING ACETAMINOPHEN 500 MG TABLET 1 TO 2 TABLET NEEDED ORALLY EVERY 6 HRS PRN FOR PAIN MDD6 TAKING CLARITIN-D 24 HOUR 10-240 MG/24HR TABLET EXTENDED RELEASE 24 HOUR 1 TABLET NEEDED ORALLY ONCE A DAY TAKING SENOKOT S 8.6-50 MG TABLET 1 TABLET IN THE EVENING NEEDED ORALLY ONCE A DAY TAKING BACLOFEN 20 MG TABLET 1 TABLET WITH FOOD OR MILK ORALLY EVERY 8 HRS PRN SPASM MDD=3 TAKING GABAPENTIN 100 MG CAPSULE 1 CAP IN AM, 1 IN AFTERNOON, AND 2 AT BEDTIME ORALLY TID NOT-TAKING IBUPROFEN 200 MG TABLET 1 TABLET NEEDED ORALLY EVERY 6 HRS NOT-TAKING AMITRIPTYLINE HCL 10 MG TABLET 1 TABLET AT BEDTIME ORALLY ONCE A DAY, NOTES: WORKERS COMP-WOULDN'T AUTHORIZE MEDICATION LIST REVIEWED AND RECONCILED WITH THE PATIENT PAST MEDICAL HISTORY COMPLEX REGIONAL PAIN SYNDROME RIGHT ARM ESOPHAGEAL REFLUX DIAPHRAGMATIC HERNIA-PT UNAWARE MYOFASCIAL PAIN SYNDROME CHRONIC NECK PAIN ALLERGIES PENICILLIN (FOR ALLERGIES USE ONLY): UNKNOWN REACTION - ALLERGY SULFA (FOR ALLERGY USE ONLY): UNKNOWN REACTION - ALLERGY CYCLOBENZAPRINE HCL: ABDOMINAL PAIN - SIDE EFFECTS GABAPENTIN: HIGH DOSE CONFUSION/MEMORY LOSS - SIDE EFFECTS SEASONAL: SINUS CONGESTION, ITCHY EYES - ALLERGY SURGICAL HISTORY RIGHT SHOULDER SCOPE 2006 UTERINE ABLATION 2011 TONSILLECTOMY FAMILY HISTORY FATHER: , PROSTATE CA, DIAGNOSED WITH OTHER MALIGNANT NEOPLASM OF UNSPECIFIED SITE MOTHER: ALIVE, DIABETES 1DAUGHTER(S) - HEALTHY. SOCIAL HISTORY GENERAL: TOBACCO USE ARE YOU A: NONSMOKER. LATEX QUESTIONNAIRE LATEX ALLERGY : HAVE YOU EVER DEVELOPED ANY TYPE OF REACTION AFTER HANDLING LATEX PRODUCTS SUCH RUBBER GLOVES, CONDOMS, DIAPHRAGMS, BALLOONS, SOCKS, OR UNDERWEAR?NO LATEX ALLERGY : HAVE YOU EVER DEVELOPED ANY TYPE OF REACTION DURING OR AFTER DENTAL APPOINTMENT, VAGINAL/RECTAL EXAMINATION, SURGICAL PROCEDURE, OR ANY OTHER EXPOSURE?NO DATE ASKED : 06/12/2019 LATEX RISK : HAVE YOU EVER HAD ANY DIFFICULTY BREATHING OR HIVES AFTER EATING OR HANDLING ANY FRUITS, OR VEGETABLES; SUCH KIWI, BANANAS, STONE FRUITS, OR CHESTNUTSNO LATEX RISK : DO YOU HAVE A PREVIOUS PERSONAL HISTORY OF MORE THAN NINE SURGERIES, SPINA BIFIDA, OR REPEATED CATHERIZATIONS? NO LATEX RISK : ARE YOU FREQUENTLY EXPOSED TO LATEX PRODUCTS IN YOUR OCCUPATION?NO ALCOHOL SCREENING DID YOU HAVE A DRINK CONTAINING ALCOHOL IN THE PAST YEAR?NO POINTS0 INTERPRETATIONNEGATIVE RECREATIONAL DRUG USE DRUG USE?NO CAFFEINE CAFFEINE USE?YES HOW OFTEN AND HOW MUCH? 1-1 1/2 CUPS COFFEE/DAY GNOSTICISM GNOSTICISM NO PREFERENCE LANGUAGE LANGUAGES SPOKEN:[place] 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 LEARNING BARRIERS / SPECIAL NEEDS BARRIERS TO LEARNING?NO HEARING IMPAIRED?NO VISION IMPAIRED?YES COGNITIVELY IMPAIRED?NO :CORRECTIVE LENSES READING GLASSES READINESS TO LEARN?YES LEARNING PREFERENCES?NO LEARNING CAPABILITIES PRESENT?YES EMOTIONAL BARRIERS?NO SPECIAL DEVICES?NO PUBLIC RELATIONS CONSULTANT NEEDED?NO DOMESTIC VIOLENCE DO YOU FEEL SAFE IN YOUR ENVIRONMENT?YES NEW PATIENT PAIN DIARY TODAY'S VISIT 10/09/2019 PATIENT DESCRIBES PAIN :BURNING, HAVE IT ALL THE TIME, STABBING FROM 0-10, WHAT LEVEL IS YOUR PAIN TODAY?7 PRECIPITATING FACTORS DAMPNESS, CHANGE IN WEATHER ALLEVIATING FACTORS NOT REALLY, BUT HAS TRIED HEAT, ICE, AND PAIN MEDICATIONS IMPACT ON FUNCTION YES PAIN CLINIC PFS, CLERGY, PUBLIC HEALTH REFERRALS PFS REFERRAL NEEDED?NO CLERGY REFERRAL NEEDED?NO PUBLIC HEALTH REFERRAL NEEDED?NO WAS THE PROVIDER NOTIFIED OF ANY PERTINENT INFO?YES N/A HAS THE PATIENT BEEN EDUCATED REGARDING HIS/HER PLAN OF CARE?YES HAS THE PATIENT BEEN EDUCATED REGARDING PAIN, THE RISK FOR PAIN, THE IMPORTANCE OF EFFECTIVE PAIN MANAGEMENT, AND THE PAIN ASSESSMENT PROCESS?YES ADVANCE DIRECTIVE ADVANCE DIRECTIVE DISCUSSED WITH PATIENT:YES PT. DOES NOT HAVE ANY ADVANCED DIRECTIVES AND STATES SHE ALREADY HAD HCP INFORMATION. ASSISTANCE OFFERED IN COMPLETING FORM IF NEEDED. HOSPITALIZATION/MAJOR DIAGNOSTIC PROCEDURE TONSILLECTOMY REVIEW OF SYSTEMS REVIEWED BY: PROVIDER: FRANKO MAKI . CONSTITUTIONAL: ANY CHANGE IN YOUR MEDICAL CONDITION? NO . CHILLS NO . FEVER NO . INFECTION: DO YOU HAVE NEW INFECTIONS? NO . DO YOU HAVE HISTORY OF MRSA? NO . MUSCULOSKELETAL: ANY NEW PATTERNS OF PAIN OR NUMBNESS? NO . GASTROENTEROLOGY: ANY NEW CHANGE IN BOWEL CONTROL? NO . GENITOURINARY: ANY NEW CHANGE IN BLADDER CONTROL? NO . IS THERE A CHANCE YOU COULD BE ? NO . HEMATOLOGY/LYMPH: DO YOU TAKE ANY BLOOD THINNERS? (FOR EXAMPLE- COUMADIN, PLAVIX, AGGRENOX, PLATEL, PRADAXA, OR XARELTO) NO . WHEN WAS YOUR LAST DOSE? DATE: TIME: . NEUROLOGY: HAVE YOU FALLEN IN THE PAST 12 MONTHS? NO . ANY NEW EXTREMITY NUMBNESS OR WEAKNESS? NO . CARDIOLOGY: DO YOU HAVE A PACEMAKER OR DEFIBRILLATOR? NO . RESPIRATORY: HAVE YOU BEEN SICK IN THE PAST WEEK? NO . FEVER NO . FLU LIKE SYMPTOMS? NO . COUGH NO . INTEGUMENTARY: DO YOU HAVE ANY RASHES OR OPEN SORES? NO . ALLERGIC/IMMUNO: ARE YOU ALLERGIC TO IV DYE? NO . ANY NEW ALLERGIES? NO . PSYCHIATRIC: DO YOU HAVE THOUGHTS OF HURTING YOURSELF OR SOMEONE ELSE? NO . ARE YOU ABUSED, NEGLECTED, OR IN AN UNSAFE ENVIRONMENT? NO . ENDOCRINOLOGY: ARE YOU DIABETIC? NO . OTHER: DO YOU NEED ANY PRESCRIPTIONS? YES . IF YES, PLEASE LIST: ____BACLOFEN . ANY NEW PROBLEMS WITH YOUR MEDICATIONS? NO . WHEN DID YOU LAST EAT? ____ . WHEN DID YOU LAST DRINK? ____ . WHAT DID YOU LAST DRINK? ____ . NAME OF PERSON DRIVING YOU HOME? ____ . DO YOU HAVE ANY OTHER QUESTIONS OR CONCERNS NO . EXAMINATION GENERAL EXAMINATION: PSYCHAPPROPRIATE MOOD AND AFFECT , ORIENTED X 3. 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 CHRONIC PAIN FOLLOW-UP. GIVEN PRESENTING SYMPTOMS RECOMMENDED CONTINUATION OF CURRENT MEDICATION REGIMEN WITH FOLLOW-UP IN 3 MONTHS. PATIENT HAS EXPRESSED UNDERSTANDING OF AND WAS IN AGREEMENT WITH TREATMENT PLAN. GIVEN TIME TO ASK QUESTIONS AND EXPRESS CONCERNS. VISIT TO BE BILLED BASED ON TIME SPENT WITH PATIENT. TIME SPENT WITH PATIENT 11 MINUTES. OTHERS NOTES: NO VITAL SIGNS WERE TAKEN, THIS IS A VIRTUAL VISIT. DISPOSITION & COMMUNICATION FOLLOW UP 3 MONTHS (REASON: [facility] WORKMEN'S COMP.) ELECTRONICALLY SIGNED BY VIET GRADY ON 10/13/2019 AT 08:07 AM EDT DISCLAIMER : THIS IS A VISIT SUMMARY EXTRACTED FROM THE [employer] CHART. IT IS NOT A COPY OF THE [email or web address] PROGRESS NOTE. TESS
== END ==
LOC: M PAIN 10:30
PROVIDERS: ATTEND Family Medicine
DX: G90.519 Complex regional pain syndrome I of unspecified upper limb (principal); G89.29 Other chronic pain; Z88.0 Allergy status to penicillin; Z88.2 Allergy status to sulfonamides; Z88.8 Allergy status to other drugs, medicaments and biological substances; Z79.899 Other long term (current) drug therapy

== ENCOUNTER → 2020-01-12 | Outpatient (CLI) | payer OTHER | LOC: M PAIN 11:00 | PROVIDERS: ATTEND Family Medicine | DX: M54.2 Cervicalgia (principal); M25.519 Pain in unspecified shoulder ==

== ENCOUNTER → 2020-04-13 | Outpatient (CLI) | payer OTHER ==
--- NOTE | 2020-04-15 04:28 | ECWPNPC ---
PATIENT NAME: GAUTAM CHAVES : 1965 GENDER: FEMALE VISIT DATE: 04/13/2020 DISCHARGE DATE: 04/13/20 1018 VISIT LOCKED DATE TIME: PHYSICIAN: ARSALAN ARIAS PHYSICIAN PAGER NO: ACTIVE RESOURCE: ARSALAN ARIAS REASON FOR APPOINTMENT 1. W/C NECK/SHOULDERS HISTORY OF PRESENT ILLNESS GENERAL: - 55-YEAR-OLD FEMALE IN FOR WORKER'S COMP. CHRONIC PAIN FOLLOW-UP. SHE RATES HER PAIN CURRENTLY AT AN 8 OUT OF 10 AND DESCRIBES IT SHARP AND STABBING. SHE FEELS MEDICATIONS ARE HELPFUL AND DENIES MED SIDE EFFECTS AT THIS TIME. THE PATIENT WAS HURT IN A WORK RELATED INJURY ON 07/12/2003 WHILE WORKING FOR [employer] WHEN SHE WAS LIFTING AN 80 POUND BIN OF PASTA AND INJURED HER NECK AND RIGHT SHOULDER. FALL RISK SCREENING: SCREENING :NO FALLS REPORTED IN THE LAST YEAR PAIN SCREENING: PATIENT HAS A COMPLAINT OF ACUTE OR CHRONIC PAIN :YES LOCATION OF PAIN:NECK, BOTH SHOULDERS INTENSITY OF PAIN (SCALE OF 1 TO 10):8 WHAT DOES YOUR PAIN FEEL LIKE:SHARP, STABBING DURATION:CONTINOUS, CONSTANT PAIN IS INCREASED BY:ACTIVITIES PAIN IS DECREASED BY:USE OF PAIN MEDICATIONS TREATMENT/MEDICATIONS USED TO MANAGE PAIN:OTC PAIN RELIEVERS, NSAIDS, OPIOIDS LEVEL OF RELIEF FROM PAIN TREATMENTS IN THE PAST:50% PAIN HAS INTERFERED WITH THE FOLLOWING:BATHING/DRESSING, WALKING ABILITY, HOUSEWORK, SLEEP, TRANSPORTATION, TOILETING NURSING NOTE: -. PAIN CENTER INTAKE QUESTIONS: DO YOU HAVE A HISTORY OF MRSA? :NO DO YOU TAKE A BLOOD THINNERS? :NO DO YOU HAVE ANY BLEEDING DISORDERS? :NO ANY NEW NUMBNESS OR WEAKNESS IN YOUR LEGS OR ARMS? :NO ANY PACEMAKER,DEFIBRILLATOR, OR DORSAL COLUMN STIMULATOR? :NO DO YOU HAVE ANY RASHES OR OPEN SORES? :NO ARE YOU ALLERGIC TO IV DYE? :NO ARE YOU DIABETIC? :NO ANY NEW PROBLEMS WITH YOUR MEDICATIONS? :NO HAVE YOU RECEIVED A VACCINE IN THE PAST 30 DAYS? :NO DO YOU PLAN TO RECEIVE A VACCINE IN THE NEXT 21 DAYS? :YES IF SO WHAT VACCINE AND WHEN? MAYBE FLU VACCINE DO YOU NEED ANY PRESCRIPTION? :YES BACLOFEN DO YOU TAKE ANY IMMUNOSUPPRESSIVE MEDICATIONS? :NO IS THERE A CHANCE YOU COULD BE ? :NO ARE YOU BREAST FEEDING? :NO CURRENT MEDICATIONS TAKING ACETAMINOPHEN 500 MG TABLET 1 TO 2 TABLET NEEDED ORALLY EVERY 6 HRS PRN FOR PAIN MDD6 TAKING CLARITIN-D 24 HOUR 10-240 MG/24HR TABLET EXTENDED RELEASE 24 HOUR 1 TABLET NEEDED ORALLY ONCE A DAY TAKING SENOKOT S 8.6-50 MG TABLET 1 TABLET IN THE EVENING NEEDED ORALLY ONCE A DAY TAKING BACLOFEN 20 MG TABLET 1 TABLET WITH FOOD OR MILK ORALLY EVERY 8 HRS PRN SPASM MDD=3 TAKING GABAPENTIN 100 MG CAPSULE 1 CAP IN AM, 1 IN AFTERNOON, AND 2 AT BEDTIME ORALLY TID NOT-TAKING IBUPROFEN 200 MG TABLET 1 TABLET NEEDED ORALLY EVERY 6 HRS NOT-TAKING AMITRIPTYLINE HCL 10 MG TABLET 1 TABLET AT BEDTIME ORALLY ONCE A DAY, NOTES: WORKERS COMP-WOULDN'T AUTHORIZE PAST MEDICAL HISTORY COMPLEX REGIONAL PAIN SYNDROME RIGHT ARM ESOPHAGEAL REFLUX DIAPHRAGMATIC HERNIA-PT UNAWARE MYOFASCIAL PAIN SYNDROME CHRONIC NECK PAIN ALLERGIES PENICILLIN (FOR ALLERGIES USE ONLY): UNKNOWN REACTION - ALLERGY SULFA (FOR ALLERGY USE ONLY): UNKNOWN REACTION - ALLERGY CYCLOBENZAPRINE HCL: ABDOMINAL PAIN - SIDE EFFECTS GABAPENTIN: HIGH DOSE CONFUSION/MEMORY LOSS - SIDE EFFECTS SEASONAL: SINUS CONGESTION, ITCHY EYES - ALLERGY SURGICAL HISTORY RIGHT SHOULDER SCOPE 2007 UTERINE ABLATION 2012 TONSILLECTOMY FAMILY HISTORY FATHER: , PROSTATE CA, DIAGNOSED WITH OTHER MALIGNANT NEOPLASM OF UNSPECIFIED SITE MOTHER: ALIVE, DIABETES 1DAUGHTER(S) - HEALTHY. SOCIAL HISTORY GENERAL: TOBACCO USE ARE YOU A: NONSMOKER. LATEX QUESTIONNAIRE LATEX ALLERGY : HAVE YOU EVER DEVELOPED ANY TYPE OF REACTION AFTER HANDLING LATEX PRODUCTS SUCH RUBBER GLOVES, CONDOMS, DIAPHRAGMS, BALLOONS, SOCKS, OR UNDERWEAR?NO LATEX ALLERGY : HAVE YOU EVER DEVELOPED ANY TYPE OF REACTION DURING OR AFTER DENTAL APPOINTMENT, VAGINAL/RECTAL EXAMINATION, SURGICAL PROCEDURE, OR ANY OTHER EXPOSURE?NO DATE ASKED : 06/12/2019 LATEX RISK : HAVE YOU EVER HAD ANY DIFFICULTY BREATHING OR HIVES AFTER EATING OR HANDLING ANY FRUITS, OR VEGETABLES; SUCH KIWI, BANANAS, STONE FRUITS, OR CHESTNUTSNO LATEX RISK : DO YOU HAVE A PREVIOUS PERSONAL HISTORY OF MORE THAN NINE SURGERIES, SPINA BIFIDA, OR REPEATED CATHERIZATIONS? NO LATEX RISK : ARE YOU FREQUENTLY EXPOSED TO LATEX PRODUCTS IN YOUR OCCUPATION?NO ALCOHOL SCREENING DID YOU HAVE A DRINK CONTAINING ALCOHOL IN THE PAST YEAR?NO POINTS0 INTERPRETATIONNEGATIVE RECREATIONAL DRUG USE DRUG USE?NO CAFFEINE CAFFEINE USE?YES HOW OFTEN AND HOW MUCH? 1-1 1/2 CUPS COFFEE/DAY RESTORATIONISM RESTORATIONISM NO PREFERENCE LANGUAGE LANGUAGES SPOKEN:FRENCH 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 LEARNING BARRIERS / SPECIAL NEEDS BARRIERS TO LEARNING?NO HEARING IMPAIRED?NO VISION IMPAIRED?YES COGNITIVELY IMPAIRED?NO :CORRECTIVE LENSES READING GLASSES READINESS TO LEARN?YES LEARNING PREFERENCES?NO LEARNING CAPABILITIES PRESENT?YES EMOTIONAL BARRIERS?NO SPECIAL DEVICES?NO DRAPERY OPERATOR NEEDED?NO DOMESTIC VIOLENCE DO YOU FEEL SAFE IN YOUR ENVIRONMENT?YES TODAY'S VISIT 10/09/2019 PATIENT DESCRIBES PAIN :BURNING, HAVE IT ALL THE TIME, STABBING FROM 0-10, WHAT LEVEL IS YOUR PAIN TODAY?7 PRECIPITATING FACTORS DAMPNESS, CHANGE IN WEATHER ALLEVIATING FACTORS NOT REALLY, BUT HAS TRIED HEAT, ICE, AND PAIN MEDICATIONS IMPACT ON FUNCTION YES PAIN CLINIC PFS, CLERGY, PUBLIC HEALTH REFERRALS PFS REFERRAL NEEDED?NO CLERGY REFERRAL NEEDED?NO PUBLIC HEALTH REFERRAL NEEDED?NO WAS THE PROVIDER NOTIFIED OF ANY PERTINENT INFO?YES N/A HAS THE PATIENT BEEN EDUCATED REGARDING HIS/HER PLAN OF CARE?YES HAS THE PATIENT BEEN EDUCATED REGARDING PAIN, THE RISK FOR PAIN, THE IMPORTANCE OF EFFECTIVE PAIN MANAGEMENT, AND THE PAIN ASSESSMENT PROCESS?YES ADVANCE DIRECTIVE ADVANCE DIRECTIVE DISCUSSED WITH PATIENT:YES PT. DOES NOT HAVE ANY ADVANCED DIRECTIVES AND STATES SHE ALREADY HAD HCP INFORMATION. ASSISTANCE OFFERED IN COMPLETING FORM IF NEEDED. HOSPITALIZATION/MAJOR DIAGNOSTIC PROCEDURE TONSILLECTOMY REVIEW OF SYSTEMS CONSTITUTIONAL: ANY RECENT FEVER NO . CHILLS NO . WEIGHT CHANGE OF UNKNOWN REASONS NO . GASTROENTEROLOGY: NEW UNEXPLAINABLE CHANGES IN BOWEL CONTROL NO . CONSTIPATION NO . GENITOURINARY: ANY NEW CHANGE IN BLADDER CONTROL? NO . NEUROLOGY: NEW ONSET DIZZINESS OR NEUROLOGICAL CHANGES NOT MENTIONED NO . NEW NUMBNESS OR PAIN PATTERNS NOT MENTIONED AND PERTINENT TO TODAY'S VISIT NO . CARDIOLOGY: NEW CHEST PRESSURE NO . NEW CHEST PAIN NO . RESPIRATORY: UNEXPLAINABLE COUGH NO . NEW SHORTNESS OF BREATH NO . VITAL SIGNS WT 208.4 LBS, HT 69 IN, BMI 30.77 INDEX, BP 136/67 MM HG, HR 65 /MIN, RR 16 /MIN, TEMP 97.6 F, OXYGEN SAT % 99%, SAFE IN ENV? (Y/N) Y, NA INITIALS CO 09:55, REVIEWED BY: EM. EXAMINATION GENERAL EXAMINATION: GENERALNO ACUTE DISTRESS, WELL NOURISHED AND HYDRATED. PSYCHAPPROPRIATE MOOD AND AFFECT . LUNGS:CLEAR TO AUSCULTATION BILATERALLY, NO WHEEZES, RHONCHI, RALES. HEART:NO MURMURS, REGULAR RATE AND RHYTHM. ASSESSMENTS COMPLEX REGIONAL PAIN SYNDROME I OF UPPER LIMB - G90.519 (PRIMARY) TREATMENT COMPLEX REGIONAL PAIN SYNDROME I OF UPPER LIMB NOTES: 55-YEAR-OLD FEMALE IN FOR CHRONIC PAIN FOLLOW-UP. GIVEN PRESENTING SYMPTOMS RECOMMENDED CONTINUATION OF CURRENT MEDICATION REGIMEN WITH FOLLOW-UP IN 3 MONTHS. PATIENT HAS EXPRESSED UNDERSTANDING OF AND WAS IN AGREEMENT WITH TREATMENT PLAN. GIVEN TIME TO ASK QUESTIONS AND EXPRESS CONCERNS. PROCEDURES PN WORKMANS' COMP OPINION IN YOUR OPINION, WAS THE INCIDENT THAT THE PATIENT DESCRIBED THE COMPETENT MEDICAL CAUSE OF THIS INJURY/ILLNESS? YES ARE THE PATIENT'S COMPLAINTS CONSISTENT WITH HIS/HER HISTORY OF THE INJURY/ILLNESS? YES IS THE PATIENT'S HISTORY OF THE INJURY/ILLNESS CONSISTENT WITH YOUR OBJECTIVE FINDING? YES WHAT IS THE PERCENTAGE OF TEMPORARY IMPAIRMENT? MODERATE TO MARKED = 66.7% IS THE PATIENT WORKING? NO DOCTOR ON SITE: MAYCOL FRANCISCO MD PROCEDURE CODES FA211 ESTABILISHED PATIENT [facility] CHARGE DISPOSITION & COMMUNICATION FOLLOW UP 3 MONTHS (REASON: [facility]) ELECTRONICALLY SIGNED BY VIET GRADY ON 04/14/2020 AT 11:43 AM EST DISCLAIMER : THIS IS A VISIT SUMMARY EXTRACTED FROM THE [employer] CHART. IT IS NOT A COPY OF THE [employer] PROGRESS NOTE. TESS
== END ==
LOC: M PAIN 10:00
PROVIDERS: ATTEND Family Medicine
DX: G90.519 Complex regional pain syndrome I of unspecified upper limb (principal); G89.29 Other chronic pain; Z88.0 Allergy status to penicillin; Z88.2 Allergy status to sulfonamides; Z88.8 Allergy status to other drugs, medicaments and biological substances; Z79.899 Other long term (current) drug therapy

== ENCOUNTER → 2020-08-02 | Outpatient (CLI) | payer OTHER ==
--- NOTE | 2020-08-04 04:26 | ECWPNPC ---
PATIENT NAME: GAUTAM CHAVES : 1965 GENDER: FEMALE VISIT DATE: 08/02/2020 DISCHARGE DATE: 08/02/20 1136 VISIT LOCKED DATE TIME: PHYSICIAN: ARSALAN ARIAS PHYSICIAN PAGER NO: ACTIVE RESOURCE: ARSALAN ARIAS REASON FOR APPOINTMENT 1. NECK AND RIGHT SHOULDER HISTORY OF PRESENT ILLNESS DEPRESSION SCREENING: PHQ-2 (2015 EDITION) LITTLE INTEREST OR PLEASURE IN DOING THINGS?NOT AT ALL FEELING DOWN, DEPRESSED, OR HOPELESS?NOT AT ALL TOTAL SCORE0 55-YEAR-OLD FEMALE IN FOR WORKER'S COMP. CHRONIC PAIN FOLLOW-UP. SHE RATES HER PAIN CURRENTLY AT AN 8 OUT OF 10 AND DESCRIBES IT CONTINUOUS AND SHARP. PATIENT FEELS HER MEDICATIONS ARE HELPFUL AND DENIES MED SIDE EFFECTS AT THIS TIME. THE PATIENT WAS HURT IN A WORK RELATED INJURY ON 07/12/2003 WHILE WORKING FOR [employer] WHEN SHE WAS LIFTING AN 80 POUND BIN OF PASTA AND INJURED HER NECK AND RIGHT SHOULDER. GENERAL: -. FALL RISK SCREENING: SCREENING : NO FALLS REPORTED IN THE LAST YEAR. PAIN SCREENING: PATIENT HAS A COMPLAINT OF ACUTE OR CHRONIC PAIN :YES LOCATION OF PAIN:NECK, BOTH SHOULDERS INTENSITY OF PAIN (SCALE OF 1 TO 10):8 WHAT DOES YOUR PAIN FEEL LIKE:CONTINOUS, SHARP DURATION:CONTINOUS, CONSTANT, AWAKENS FROM SLEEP PAIN IS INCREASED BY:ACTIVITIES, OTHERS SITTING PAIN IS DECREASED BY:USE OF PAIN MEDICATIONS, OTHERS HEAT HELPS WITH SPASMS NURSING NOTE: -. PAIN CENTER INTAKE QUESTIONS: DO YOU HAVE A HISTORY OF MRSA? :NO DO YOU TAKE A BLOOD THINNERS? :NO DO YOU HAVE ANY BLEEDING DISORDERS? :NO ANY NEW NUMBNESS OR WEAKNESS IN YOUR LEGS OR ARMS? :NO ANY PACEMAKER,DEFIBRILLATOR, OR DORSAL COLUMN STIMULATOR? :NO DO YOU HAVE ANY RASHES OR OPEN SORES? :NO ARE YOU ALLERGIC TO IV DYE? :NO ARE YOU DIABETIC? :NO ANY NEW PROBLEMS WITH YOUR MEDICATIONS? :NO HAVE YOU RECEIVED A VACCINE IN THE PAST 30 DAYS? :NO DO YOU PLAN TO RECEIVE A VACCINE IN THE NEXT 21 DAYS? :YES IF SO WHAT VACCINE AND WHEN? WAITING FOR JOSE AND JOSE COVID VACCINATION DO YOU NEED ANY PRESCRIPTION? :NO DO YOU TAKE ANY IMMUNOSUPPRESSIVE MEDICATIONS? :NO DO YOU HAVE ANY KIDNEY OR LIVER DISEASE? :NO IS THERE A CHANCE YOU COULD BE ? :NO ARE YOU BREAST FEEDING? :NO CURRENT MEDICATIONS TAKING ACETAMINOPHEN 500 MG TABLET 1 TO 2 TABLET NEEDED ORALLY EVERY 6 HRS PRN FOR PAIN MDD6 TAKING CLARITIN-D 24 HOUR 10-240 MG/24HR TABLET EXTENDED RELEASE 24 HOUR 1 TABLET NEEDED ORALLY ONCE A DAY TAKING SENOKOT S 8.6-50 MG TABLET 1 TABLET IN THE EVENING NEEDED ORALLY ONCE A DAY TAKING GABAPENTIN 100 MG CAPSULE 1 CAP IN AM, 1 IN AFTERNOON, AND 2 AT BEDTIME ORALLY TID TAKING BACLOFEN 20 MG TABLET 1 TABLET WITH FOOD OR MILK ORALLY EVERY 8 HRS PRN SPASM MDD=3 NOT-TAKING IBUPROFEN 200 MG TABLET 1 TABLET NEEDED ORALLY EVERY 6 HRS NOT-TAKING AMITRIPTYLINE HCL 10 MG TABLET 1 TABLET AT BEDTIME ORALLY ONCE A DAY, NOTES: WORKERS COMP-WOULDN'T AUTHORIZE MEDICATION LIST REVIEWED AND RECONCILED WITH THE PATIENT PAST MEDICAL HISTORY COMPLEX REGIONAL PAIN SYNDROME RIGHT ARM ESOPHAGEAL REFLUX DIAPHRAGMATIC HERNIA-PT UNAWARE MYOFASCIAL PAIN SYNDROME CHRONIC NECK PAIN ALLERGIES PENICILLIN (FOR ALLERGIES USE ONLY): UNKNOWN REACTION - ALLERGY SULFA (FOR ALLERGY USE ONLY): UNKNOWN REACTION - ALLERGY CYCLOBENZAPRINE HCL: ABDOMINAL PAIN - SIDE EFFECTS GABAPENTIN: HIGH DOSE CONFUSION/MEMORY LOSS - SIDE EFFECTS SEASONAL: SINUS CONGESTION, ITCHY EYES - ALLERGY SOCIAL HISTORY GENERAL: TOBACCO USE ARE YOU A: NONSMOKER. LATEX QUESTIONNAIRE LATEX ALLERGY : HAVE YOU EVER DEVELOPED ANY TYPE OF REACTION AFTER HANDLING LATEX PRODUCTS SUCH RUBBER GLOVES, CONDOMS, DIAPHRAGMS, BALLOONS, SOCKS, OR UNDERWEAR?NO LATEX ALLERGY : HAVE YOU EVER DEVELOPED ANY TYPE OF REACTION DURING OR AFTER DENTAL APPOINTMENT, VAGINAL/RECTAL EXAMINATION, SURGICAL PROCEDURE, OR ANY OTHER EXPOSURE?NO LATEX RISK : HAVE YOU EVER HAD ANY DIFFICULTY BREATHING OR HIVES AFTER EATING OR HANDLING ANY FRUITS, OR VEGETABLES; SUCH KIWI, BANANAS, STONE FRUITS, OR CHESTNUTSNO LATEX RISK : DO YOU HAVE A PREVIOUS PERSONAL HISTORY OF MORE THAN NINE SURGERIES, SPINA BIFIDA, OR REPEATED CATHERIZATIONS? NO LATEX RISK : ARE YOU FREQUENTLY EXPOSED TO LATEX PRODUCTS IN YOUR OCCUPATION?NO DATE ASKED : 08/02/2020 ALCOHOL USE: NO. ALCOHOL SCREENING DID YOU HAVE A DRINK CONTAINING ALCOHOL IN THE PAST YEAR?NO POINTS0 INTERPRETATIONNEGATIVE RECREATIONAL DRUG USE DRUG USE?NO CAFFEINE CAFFEINE USE?YES HOW OFTEN AND HOW MUCH? 1-1 1/2 CUPS COFFEE/DAY MOSQUE MOSQUE NO PREFERENCE LANGUAGE LANGUAGES SPOKEN:[employer] 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 LEARNING BARRIERS / SPECIAL NEEDS BARRIERS TO LEARNING?NO HEARING IMPAIRED?NO VISION IMPAIRED?YES :CORRECTIVE LENSES READING GLASSES COGNITIVELY IMPAIRED?NO READINESS TO LEARN?YES LEARNING PREFERENCES?NO LEARNING CAPABILITIES PRESENT?YES EMOTIONAL BARRIERS?NO SPECIAL DEVICES?NO EEG TECH NEEDED?NO DOMESTIC VIOLENCE DO YOU FEEL SAFE IN YOUR ENVIRONMENT?YES TODAY'S VISIT 10/09/2019 PATIENT DESCRIBES PAIN :BURNING, HAVE IT ALL THE TIME, STABBING FROM 0-10, WHAT LEVEL IS YOUR PAIN TODAY?7 PRECIPITATING FACTORS DAMPNESS, CHANGE IN WEATHER ALLEVIATING FACTORS NOT REALLY, BUT HAS TRIED HEAT, ICE, AND PAIN MEDICATIONS IMPACT ON FUNCTION YES - PFS REFERRAL NEEDED?NO CLERGY REFERRAL NEEDED?NO PUBLIC HEALTH REFERRAL NEEDED?NO WAS THE PROVIDER NOTIFIED OF ANY PERTINENT INFO?YES N/A HAS THE PATIENT BEEN EDUCATED REGARDING HIS/HER PLAN OF CARE?YES HAS THE PATIENT BEEN EDUCATED REGARDING PAIN, THE RISK FOR PAIN, THE IMPORTANCE OF EFFECTIVE PAIN MANAGEMENT, AND THE PAIN ASSESSMENT PROCESS?YES ADVANCE DIRECTIVE ADVANCE DIRECTIVE DISCUSSED WITH PATIENT:YES PT. DOES NOT HAVE ANY ADVANCED DIRECTIVES AND STATES SHE ALREADY HAD HCP INFORMATION. ASSISTANCE OFFERED IN COMPLETING FORM IF NEEDED. REVIEW OF SYSTEMS CONSTITUTIONAL: ANY RECENT FEVER NO . CHILLS NO . WEIGHT CHANGE OF UNKNOWN REASONS NO . GASTROENTEROLOGY: NEW UNEXPLAINABLE CHANGES IN BOWEL CONTROL NO . CONSTIPATION NO . GENITOURINARY: ANY NEW CHANGE IN BLADDER CONTROL? NO . NEUROLOGY: NEW ONSET DIZZINESS OR NEUROLOGICAL CHANGES NOT MENTIONED NO . NEW NUMBNESS OR PAIN PATTERNS NOT MENTIONED AND PERTINENT TO TODAY'S VISIT NO . CARDIOLOGY: NEW CHEST PRESSURE NO . PATIENT DENIES NO . RESPIRATORY: UNEXPLAINABLE COUGH NO . NEW SHORTNESS OF BREATH NO . VITAL SIGNS WT 211 LBS, HT 69 IN, BMI 31.16 INDEX, BP 136/76 MM HG, HR 65 /MIN, RR 18 /MIN, TEMP 98.3 F, OXYGEN SAT % 99%, SAFE IN ENV? (Y/N) YES, REVIEWED BY: RAFAELA GARCIA MA. EXAMINATION GENERAL EXAMINATION: GENERALNO ACUTE DISTRESS, WELL NOURISHED AND HYDRATED. PSYCHAPPROPRIATE MOOD AND AFFECT . LUNGS:CLEAR TO AUSCULTATION BILATERALLY, NO WHEEZES, RHONCHI, RALES. HEART:NO MURMURS, REGULAR RATE AND RHYTHM. 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 CHRONIC PAIN FOLLOW-UP. GIVEN PRESENTING SYMPTOMS RECOMMENDED CONTINUATION OF CURRENT MEDICATION REGIMEN WITH FOLLOW-UP IN 3 MONTHS. PATIENT DID ADMIT TO MUSCLE TIGHTNESS AND WAS ENCOURAGED TO USE HEAT NEEDED 3 TIMES A DAY. PATIENT HAS EXPRESSED UNDERSTANDING OF AND WAS IN AGREEMENT WITH TREATMENT PLAN. GIVEN TIME TO ASK QUESTIONS AND EXPRESS CONCERNS. PROCEDURES PN WORKMANS' COMP OPINION IN YOUR OPINION, WAS THE INCIDENT THAT THE PATIENT DESCRIBED THE COMPETENT MEDICAL CAUSE OF THIS INJURY/ILLNESS? YES ARE THE PATIENT'S COMPLAINTS CONSISTENT WITH HIS/HER HISTORY OF THE INJURY/ILLNESS? YES IS THE PATIENT'S HISTORY OF THE INJURY/ILLNESS CONSISTENT WITH YOUR OBJECTIVE FINDING? YES WHAT IS THE PERCENTAGE OF TEMPORARY IMPAIRMENT? MODERATE TO MARKED = 66.7% IS THE PATIENT WORKING? NO DOCTOR ON SITE: MAYCOL FRANCISCO MD PROCEDURE CODES FA211 ESTABILISHED PATIENT [facility] FACILITY CHARGE DISPOSITION & COMMUNICATION FOLLOW UP 3 MONTHS (REASON: [facility] WORKERS COMP ) ELECTRONICALLY SIGNED BY VIET GRADY ON 08/03/2020 AT 09:55 AM EST DISCLAIMER : THIS IS A VISIT SUMMARY EXTRACTED FROM THE [employer] CHART. IT IS NOT A COPY OF THE [employer] PROGRESS NOTE. TESS
== END ==
LOC: M PAIN 11:15
PROVIDERS: ATTEND Family Medicine
DX: G90.519 Complex regional pain syndrome I of unspecified upper limb (principal); G89.29 Other chronic pain; Z88.0 Allergy status to penicillin; Z88.2 Allergy status to sulfonamides; Z88.8 Allergy status to other drugs, medicaments and biological substances; Z79.899 Other long term (current) drug therapy

== ENCOUNTER → 2020-11-03 | Outpatient (CLI) | payer OTHER ==
--- NOTE | 2020-11-04 05:00 | ECWPNPC ---
PATIENT NAME: GAUTAM CHAVES : 1965 GENDER: FEMALE VISIT DATE: 11/03/2020 DISCHARGE DATE: 11/03/20 1025 VISIT LOCKED DATE TIME: PHYSICIAN: ARSALAN ARIAS PHYSICIAN PAGER NO: ACTIVE RESOURCE: ARSALAN ARIAS REASON FOR APPOINTMENT 1. NECK AND RIGHT SHOULDER HISTORY OF PRESENT ILLNESS GENERAL: HPI 55-YEAR-OLD FEMALE IN FOR WORKER'S COMP. CHRONIC PAIN FOLLOW-UP. SHE RATES HER PAIN CURRENTLY AT AN 8 OUT OF 10 AND DESCRIBES IT ACHING, BURNING, AND CONTINUOUS. PATIENT FEELS THE MEDICATIONS ARE HELPFUL AND DENIES MED SIDE EFFECTS AT THIS TIME. PATIENT DOES ADMIT TO NEW PAIN SYMPTOMS BELOW HER RIGHT SHOULDER BLADE. DOI: 07/12/2003. -. FALL RISK SCREENING: SCREENING : NO FALLS REPORTED IN THE LAST YEAR. PAIN SCREENING: PATIENT HAS A COMPLAINT OF ACUTE OR CHRONIC PAIN :YES LOCATION OF PAIN:NECK, RIGHT SHOULDER INTENSITY OF PAIN (SCALE OF 1 TO 10):8 WHAT DOES YOUR PAIN FEEL LIKE:ACHING, BURNING, CONTINOUS, SHARP, STABBING, TENDER, THROBBING, SORE, SHOOTING DURATION:CONTINOUS, CONSTANT, AWAKENS FROM SLEEP PAIN IS INCREASED BY:ACTIVITIES, PROLONGED STANDING PAIN IS DECREASED BY:USE OF PAIN MEDICATIONS, SITTING NURSING NOTE: -. PAIN CENTER INTAKE QUESTIONS: DO YOU HAVE A HISTORY OF MRSA? :NO DO YOU TAKE A BLOOD THINNERS? :NO DO YOU HAVE ANY BLEEDING DISORDERS? :NO ANY NEW NUMBNESS OR WEAKNESS IN YOUR LEGS OR ARMS? :NO ANY PACEMAKER,DEFIBRILLATOR, OR DORSAL COLUMN STIMULATOR? :NO DO YOU HAVE ANY RASHES OR OPEN SORES? :NO ARE YOU ALLERGIC TO IV DYE? :NO ARE YOU DIABETIC? :NO ANY NEW PROBLEMS WITH YOUR MEDICATIONS? :NO HAVE YOU RECEIVED A VACCINE IN THE PAST 30 DAYS? :NO 09/21/20 JOSE AND JOSE NEVAEH DOSE DO YOU PLAN TO RECEIVE A VACCINE IN THE NEXT 21 DAYS? :NO DO YOU NEED ANY PRESCRIPTION? :NO DO YOU TAKE ANY IMMUNOSUPPRESSIVE MEDICATIONS? :NO DO YOU HAVE ANY KIDNEY OR LIVER DISEASE? :NO IS THERE A CHANCE YOU COULD BE ? :NO ARE YOU BREAST FEEDING? :NO CURRENT MEDICATIONS TAKING ACETAMINOPHEN 500 MG TABLET 1 TO 2 TABLET NEEDED ORALLY EVERY 6 HRS PRN FOR PAIN MDD6 TAKING CLARITIN-D 24 HOUR 10-240 MG/24HR TABLET EXTENDED RELEASE 24 HOUR 1 TABLET NEEDED ORALLY ONCE A DAY TAKING SENOKOT S 8.6-50 MG TABLET 1 TABLET IN THE EVENING NEEDED ORALLY ONCE A DAY TAKING GABAPENTIN 100 MG CAPSULE 1 CAP IN AM, 1 IN AFTERNOON, AND 2 AT BEDTIME ORALLY TID TAKING BACLOFEN 20 MG TABLET 1 TABLET WITH FOOD OR MILK ORALLY EVERY 8 HRS PRN SPASM MDD=3 NOT-TAKING IBUPROFEN 200 MG TABLET 1 TABLET NEEDED ORALLY EVERY 6 HRS NOT-TAKING AMITRIPTYLINE HCL 10 MG TABLET 1 TABLET AT BEDTIME ORALLY ONCE A DAY, NOTES: WORKERS COMP-WOULDN'T AUTHORIZE MEDICATION LIST REVIEWED AND RECONCILED WITH THE PATIENT PAST MEDICAL HISTORY COMPLEX REGIONAL PAIN SYNDROME RIGHT ARM ESOPHAGEAL REFLUX DIAPHRAGMATIC HERNIA-PT UNAWARE MYOFASCIAL PAIN SYNDROME CHRONIC NECK PAIN ALLERGIES PENICILLIN (FOR ALLERGIES USE ONLY): UNKNOWN REACTION - ALLERGY SULFA (FOR ALLERGY USE ONLY): UNKNOWN REACTION - ALLERGY CYCLOBENZAPRINE HCL: ABDOMINAL PAIN - SIDE EFFECTS GABAPENTIN: HIGH DOSE CONFUSION/MEMORY LOSS - SIDE EFFECTS SEASONAL: SINUS CONGESTION, ITCHY EYES - ALLERGY FAMILY HISTORY FATHER: , PROSTATE CA, DIAGNOSED WITH OTHER MALIGNANT NEOPLASM OF UNSPECIFIED SITE MOTHER: ALIVE, UNSPECIFIED HEART DISEASE, DIABETES 1DAUGHTER(S) - HEALTHY. MOTHER WAS DIAGNOSED WITH DEMENTIA. SOCIAL HISTORY GENERAL: TOBACCO USE ARE YOU A: NONSMOKER. LATEX QUESTIONNAIRE LATEX ALLERGY : HAVE YOU EVER DEVELOPED ANY TYPE OF REACTION AFTER HANDLING LATEX PRODUCTS SUCH RUBBER GLOVES, CONDOMS, DIAPHRAGMS, BALLOONS, SOCKS, OR UNDERWEAR?NO LATEX ALLERGY : HAVE YOU EVER DEVELOPED ANY TYPE OF REACTION DURING OR AFTER DENTAL APPOINTMENT, VAGINAL/RECTAL EXAMINATION, SURGICAL PROCEDURE, OR ANY OTHER EXPOSURE?NO LATEX RISK : HAVE YOU EVER HAD ANY DIFFICULTY BREATHING OR HIVES AFTER EATING OR HANDLING ANY FRUITS, OR VEGETABLES; SUCH KIWI, BANANAS, STONE FRUITS, OR CHESTNUTSNO LATEX RISK : DO YOU HAVE A PREVIOUS PERSONAL HISTORY OF MORE THAN NINE SURGERIES, SPINA BIFIDA, OR REPEATED CATHERIZATIONS? NO LATEX RISK : ARE YOU FREQUENTLY EXPOSED TO LATEX PRODUCTS IN YOUR OCCUPATION?NO DATE ASKED : 11/03/2020 ALCOHOL USE: NO. ALCOHOL SCREENING DID YOU HAVE A DRINK CONTAINING ALCOHOL IN THE PAST YEAR?NO POINTS0 INTERPRETATIONNEGATIVE RECREATIONAL DRUG USE DRUG USE?NO CAFFEINE CAFFEINE USE?YES HOW OFTEN AND HOW MUCH? 1-1 1/2 CUPS COFFEE/DAY [employer]IST B[employer]IST NO PREFERENCE LANGUAGE LANGUAGES SPOKEN:[place] 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 LEARNING BARRIERS / SPECIAL NEEDS CHANGE FROM LAST VISIT?NO BARRIERS TO LEARNING?NO HEARING IMPAIRED?NO VISION IMPAIRED?YES :CORRECTIVE LENSES READING GLASSES COGNITIVELY IMPAIRED?NO READINESS TO LEARN?YES LEARNING PREFERENCES?NO LEARNING CAPABILITIES PRESENT?YES EMOTIONAL BARRIERS?NO SPECIAL DEVICES?NO EXTERIOR DESIGNER NEEDED?NO DOMESTIC VIOLENCE DO YOU FEEL SAFE IN YOUR ENVIRONMENT?YES TODAY'S VISIT 10/09/2019 PATIENT DESCRIBES PAIN :BURNING, HAVE IT ALL THE TIME, STABBING FROM 0-10, WHAT LEVEL IS YOUR PAIN TODAY?7 PRECIPITATING FACTORS DAMPNESS, CHANGE IN WEATHER ALLEVIATING FACTORS NOT REALLY, BUT HAS TRIED HEAT, ICE, AND PAIN MEDICATIONS IMPACT ON FUNCTION YES - PFS REFERRAL NEEDED?NO CLERGY REFERRAL NEEDED?NO PUBLIC HEALTH REFERRAL NEEDED?NO WAS THE PROVIDER NOTIFIED OF ANY PERTINENT INFO?YES N/A HAS THE PATIENT BEEN EDUCATED REGARDING HIS/HER PLAN OF CARE?YES HAS THE PATIENT BEEN EDUCATED REGARDING PAIN, THE RISK FOR PAIN, THE IMPORTANCE OF EFFECTIVE PAIN MANAGEMENT, AND THE PAIN ASSESSMENT PROCESS?YES ADVANCE DIRECTIVE ADVANCE DIRECTIVE DISCUSSED WITH PATIENT:YES PT. DOES NOT HAVE ANY ADVANCED DIRECTIVES AND STATES SHE ALREADY HAD HCP INFORMATION. ASSISTANCE OFFERED IN COMPLETING FORM IF NEEDED. REVIEW OF SYSTEMS CONSTITUTIONAL: ANY RECENT FEVER NO . CHILLS NO . WEIGHT CHANGE OF UNKNOWN REASONS NO . GASTROENTEROLOGY: NEW UNEXPLAINABLE CHANGES IN BOWEL CONTROL NO . CONSTIPATION NO . GENITOURINARY: ANY NEW CHANGE IN BLADDER CONTROL? NO . NEUROLOGY: NEW ONSET DIZZINESS OR NEUROLOGICAL CHANGES NOT MENTIONED NO . NEW NUMBNESS OR PAIN PATTERNS NOT MENTIONED AND PERTINENT TO TODAY'S VISIT NO . CARDIOLOGY: NEW CHEST PRESSURE NO . PATIENT DENIES NO . RESPIRATORY: UNEXPLAINABLE COUGH NO . NEW SHORTNESS OF BREATH NO . VITAL SIGNS WT 208.6 LBS, HT 69 IN, BMI 30.80 INDEX, BP 122/60 MM HG, HR 61 /MIN, RR 18 /MIN, TEMP 97.0 F, OXYGEN SAT % 99%, SAFE IN ENV? (Y/N) YES, NA INITIALS AW 1010, REVIEWED BY: RAFAELA GARCIA MA. EXAMINATION GENERAL EXAMINATION: GENERALNO ACUTE DISTRESS, WELL NOURISHED AND HYDRATED. PSYCHAPPROPRIATE MOOD AND AFFECT . LUNGS:CLEAR TO AUSCULTATION BILATERALLY, NO WHEEZES, RHONCHI, RALES. HEART:NO MURMURS, REGULAR RATE AND RHYTHM. 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 DISCUSSED NEW PAIN WITH PATIENT AND HOW IT APPEARS TO BE SPASMODIC IN NATURE GIVEN HER DESCRIPTION. RECOMMEND USE OF HEATING PAD, AND WHEN NECESSARY USE OF VOLTAREN GEL. PATIENT HAS EXPRESSED UNDERSTANDING OF AND WAS IN AGREEMENT WITH TREATMENT PLAN. GIVEN TIME TO ASK QUESTIONS AND EXPRESS CONCERNS. PROCEDURES PN WORKMANS' COMP OPINION IN YOUR OPINION, WAS THE INCIDENT THAT THE PATIENT DESCRIBED THE COMPETENT MEDICAL CAUSE OF THIS INJURY/ILLNESS? YES ARE THE PATIENT'S COMPLAINTS CONSISTENT WITH HIS/HER HISTORY OF THE INJURY/ILLNESS? YES IS THE PATIENT'S HISTORY OF THE INJURY/ILLNESS CONSISTENT WITH YOUR OBJECTIVE FINDING? YES WHAT IS THE PERCENTAGE OF TEMPORARY IMPAIRMENT? MODERATE TO MARKED = 66.7% IS THE PATIENT WORKING? NO DOCTOR ON SITE: MAYCOL FRANCISCO MD PROCEDURE CODES [id number] ESTABILISHED PATIENT [facility] FACILITY CHARGE DISPOSITION & COMMUNICATION FOLLOW UP 3 MONTHS (REASON: CRPS ) ELECTRONICALLY SIGNED BY VIET GRADY ON 11/03/2020 AT 12:56 PM EDT DISCLAIMER : THIS IS A VISIT SUMMARY EXTRACTED FROM THE [employer] CHART. IT IS NOT A COPY OF THE [employer] PROGRESS NOTE. TESS
== END ==
LOC: M PAIN 10:15
PROVIDERS: ATTEND Family Medicine
DX: G90.519 Complex regional pain syndrome I of unspecified upper limb (principal); M25.511 Pain in right shoulder; G89.29 Other chronic pain; Z88.0 Allergy status to penicillin; Z88.2 Allergy status to sulfonamides; Z88.8 Allergy status to other drugs, medicaments and biological substances; Z79.899 Other long term (current) drug therapy

== ENCOUNTER → 2021-02-03 | Outpatient (CLI) | payer OTHER | LOC: M PAIN 10:15 | PROVIDERS: ATTEND Anesthesiology | DX: M25.511 Pain in right shoulder (principal); G62.9 Polyneuropathy, unspecified; M79.18 Myalgia, other site; K21.9 Gastro-esophageal reflux disease without esophagitis; K44.9 Diaphragmatic hernia without obstruction or gangrene; M54.2 Cervicalgia; J30.2 Other seasonal allergic rhinitis; G90.511 Complex regional pain syndrome I of right upper limb; Z79.899 Other long term (current) drug therapy; Z88.0 Allergy status to penicillin; Z88.2 Allergy status to sulfonamides; Z88.8 Allergy status to other drugs, medicaments and biological substances ==

== ENCOUNTER → 2021-09-26 | Outpatient (CLI) | payer OTHER | LOC: M PAIN 10:15 | PROVIDERS: ATTEND Nurse Practitioner Family | DX: M25.511 Pain in right shoulder (principal); M79.2 Neuralgia and neuritis, unspecified; M54.2 Cervicalgia; M79.10 Myalgia, unspecified site; Z88.0 Allergy status to penicillin; Z88.2 Allergy status to sulfonamides; Z88.8 Allergy status to other drugs, medicaments and biological substances; Z79.899 Other long term (current) drug therapy ==

== ENCOUNTER → 2021-12-26 | Outpatient (CLI) | payer OTHER | LOC: M PAIN 10:15 | PROVIDERS: ATTEND Nurse Practitioner Family | DX: M25.511 Pain in right shoulder (principal); M79.2 Neuralgia and neuritis, unspecified; M54.2 Cervicalgia; M79.10 Myalgia, unspecified site; G89.29 Other chronic pain; Z88.0 Allergy status to penicillin; Z88.2 Allergy status to sulfonamides; Z88.8 Allergy status to other drugs, medicaments and biological substances; Z79.899 Other long term (current) drug therapy ==

== ENCOUNTER → 2022-05-08 | Outpatient (CLI) | payer OTHER | LOC: M PAIN 10:00 | PROVIDERS: ATTEND Nurse Practitioner Family | DX: M25.511 Pain in right shoulder (principal); M79.2 Neuralgia and neuritis, unspecified; M54.2 Cervicalgia; M79.10 Myalgia, unspecified site; G89.29 Other chronic pain; Z88.0 Allergy status to penicillin; Z88.2 Allergy status to sulfonamides; Z88.8 Allergy status to other drugs, medicaments and biological substances; Z79.899 Other long term (current) drug therapy ==

== ENCOUNTER → 2022-08-06 | Outpatient (CLI) | payer OTHER | LOC: M PAIN 10:00 | PROVIDERS: ATTEND Nurse Practitioner Family | DX: M25.511 Pain in right shoulder (principal); M79.2 Neuralgia and neuritis, unspecified; M54.2 Cervicalgia; M79.10 Myalgia, unspecified site; G89.29 Other chronic pain; Z88.0 Allergy status to penicillin; Z88.1 Allergy status to other antibiotic agents; Z88.8 Allergy status to other drugs, medicaments and biological substances; Z79.899 Other long term (current) drug therapy ==

== ENCOUNTER → 2022-11-05 | Outpatient (CLI) | payer OTHER | LOC: M PAIN 10:30 | PROVIDERS: ATTEND Nurse Practitioner Family | DX: M25.511 Pain in right shoulder (principal); M79.2 Neuralgia and neuritis, unspecified; M54.2 Cervicalgia; M79.10 Myalgia, unspecified site; G89.29 Other chronic pain; Z88.0 Allergy status to penicillin; Z88.2 Allergy status to sulfonamides; Z88.8 Allergy status to other drugs, medicaments and biological substances; Z79.899 Other long term (current) drug therapy ==

== ENCOUNTER → 2023-05-07 | Outpatient (CLI) | payer OTHER | LOC: M PAIN 10:45 | PROVIDERS: ATTEND Nurse Practitioner Family | DX: M25.511 Pain in right shoulder (principal); M79.2 Neuralgia and neuritis, unspecified; M54.2 Cervicalgia; M79.10 Myalgia, unspecified site; G89.29 Other chronic pain; Z80.42 Family history of malignant neoplasm of prostate; Z88.0 Allergy status to penicillin; Z88.2 Allergy status to sulfonamides; Z88.8 Allergy status to other drugs, medicaments and biological substances; Z79.899 Other long term (current) drug therapy ==

== ENCOUNTER → 2023-08-13 | Outpatient (CLI) | payer OTHER | LOC: M PAIN 10:15 | PROVIDERS: ATTEND Nurse Practitioner Family | DX: M25.511 Pain in right shoulder (principal); M79.2 Neuralgia and neuritis, unspecified; M54.2 Cervicalgia; M79.10 Myalgia, unspecified site; Z79.891 Long term (current) use of opiate analgesic; Z79.1 Long term (current) use of non-steroidal anti-inflammatories (NSAID); Z88.0 Allergy status to penicillin; Z88.2 Allergy status to sulfonamides; Z88.5 Allergy status to narcotic agent ==

== ENCOUNTER → 2023-12-13 | Outpatient (CLI) | payer OTHER | LOC: M PAIN 10:15 | PROVIDERS: ATTEND Nurse Practitioner Family | DX: M25.511 Pain in right shoulder (principal); M79.2 Neuralgia and neuritis, unspecified; M54.2 Cervicalgia; M79.18 Myalgia, other site; G89.29 Other chronic pain; K21.9 Gastro-esophageal reflux disease without esophagitis; G90.511 Complex regional pain syndrome I of right upper limb; Z79.899 Other long term (current) drug therapy; Z88.0 Allergy status to penicillin; Z88.2 Allergy status to sulfonamides; Z88.8 Allergy status to other drugs, medicaments and biological substances ==

== ENCOUNTER → 2024-06-01 | Outpatient (CLI) | payer OTHER | LOC: M PAIN 10:15 | PROVIDERS: ATTEND Nurse Practitioner Family | DX: M50.10 Cervical disc disorder with radiculopathy, unspecified cervical region (principal); M79.2 Neuralgia and neuritis, unspecified; G89.29 Other chronic pain; G90.511 Complex regional pain syndrome I of right upper limb; M79.18 Myalgia, other site; K21.9 Gastro-esophageal reflux disease without esophagitis; Z79.899 Other long term (current) drug therapy; Z88.0 Allergy status to penicillin; Z88.2 Allergy status to sulfonamides; Z88.8 Allergy status to other drugs, medicaments and biological substances ==

== ENCOUNTER → 2024-06-29 | Outpatient (CLI) | payer OTHER | LOC: M PAIN 10:15 | PROVIDERS: ATTEND Nurse Practitioner Family | DX: M79.18 Myalgia, other site (principal); M50.10 Cervical disc disorder with radiculopathy, unspecified cervical region; G90.511 Complex regional pain syndrome I of right upper limb; G89.29 Other chronic pain; K21.9 Gastro-esophageal reflux disease without esophagitis; Z79.899 Other long term (current) drug therapy; Z88.0 Allergy status to penicillin; Z88.2 Allergy status to sulfonamides; Z88.8 Allergy status to other drugs, medicaments and biological substances ==